=== PATIENT | female | born 1930 | race Caucasian/White ===

== ENCOUNTER 2016-08-05 14:04 | Inpatient (IN) | payer MEDICARE ==
[2016-08-05 14:30] LABS: Glucose,Whole Blood 162 mg/dL (75-99)
[2016-08-05] MEDS ORDERED: SODIUM CHLORIDE 0.9% 1,000 ML IV STA (14:45)
--- NOTE | 2016-08-05 14:50 | ED ---
Dizziness HPI - General Chief Complaint: Dizziness Stated Complaint: chest pain/dizzy/lightheaded/disoriented Time Seen by Provider: 08/05/16 14:30 Source: patient, family, RN notes reviewed Mode of arrival: wheelchair Limitations: no limitations - History of Present Illness Initial Comments: This is a 86-year-old female with history of atrial fibrillation who after lunch got up and felt a popping sound in her forehead and also swollen which also some dizziness some difficulty with ambulation and also some chest heaviness. The heaviness was 7/10 in severity she states that associated with any fevers chills nausea vomiting sweats no focal weakness. She felt as though she may fall backwards. She did not actually fall however. She denied any palpitations. She barely also felt somewhat warm during this episode. She denies any cough or phlegm production no dysuria MD Complaint: dizziness, lightheadedness, other - Related Data Home Medications Medication Instructions Recorded Confirmed Clopidogrel [Plavix] 75 mg PO DAILY 08/05/16 08/05/16 Eltroxin 100mg 100 mg PO DAILY 08/05/16 08/05/16 Lisinopril [Zestril] 10 mg PO DAILY 08/05/16 08/05/16 Metoprolol Succinate [Toprol XL] 25 mg PO BID 08/05/16 08/05/16 Pantoprazole Sodium [Protonix] 40 mg PO DAILY 08/05/16 08/05/16 Rivaroxaban [Xarelto] 20 mg PO DAILY 08/05/16 08/05/16 Rosuvastatin [Crestor] 10 mg PO DAILY 08/05/16 08/05/16 amLODIPine [Norvasc] 10 mg PO DAILY 08/05/16 08/05/16 sitaGLIPtin [Januvia] 50 mg PO DAILY 08/05/16 08/05/16 Allergies Allergy/AdvReac Type Severity Reaction Status Date / Time No Known Allergies Allergy Verified 08/05/16 15:07 Review of Systems ROS Statement: Those systems with pertinent positive or pertinent negative responses have been documented in the HPI. ROS Other: All systems not noted in ROS Statement are negative. Past Medical History Past Medical History: Atrial Fibrillation, Coronary Artery Disease (CAD), Diabetes Mellitus, Hyperlipidemia, Hypertension, Myocardial Infarction ([place]), Thyroid Disorder History of Any Multi-Drug Resistant Organisms: None Reported Past Surgical History: Cholecystectomy, Heart Catheterization With Stent, Hysterectomy Past Psychological History: No Psychological Hx Reported Smoking Status: Never smoker Past Alcohol Use History: None Reported Past Drug Use History: None Reported General Exam - General Exam Comments Initial Comments: This is a well-developed well-nourished awake alert oriented 3 female she does demonstrate some scanning speech which is normal for her per her daughter Limitations: no limitations General appearance: alert, in no apparent distress Head exam: Present: atraumatic, normocephalic, other (Physical. Be a slight amount swelling just above the right eyebrow extending over towards the mid forehead step-off or crepitation no ecchymosis.) Eye exam: Present: normal appearance, PERRL, EOMI. Absent: scleral icterus, conjunctival injection, periorbital swelling ENT exam: Present: normal exam, mucous membranes moist Neck exam: Present: normal inspection. Absent: tenderness, meningismus, lymphadenopathy Respiratory exam: Present: normal lung sounds bilaterally. Absent: respiratory distress, wheezes, rales, rhonchi, stridor Cardiovascular Exam: Present: other (Occasional extrasystoles noted). Absent: systolic murmur, diastolic murmur, rubs, gallop, clicks GI/Abdominal exam: Present: soft, normal bowel sounds. Absent: distended, tenderness, guarding, rebound, rigid Extremities exam: Present: normal inspection, full ROM, normal capillary refill. Absent: tenderness, pedal edema, joint swelling, calf tenderness Back exam: Present: normal inspection Neurological exam: Present: alert, oriented X3, CN II-XII intact Psychiatric exam: Present: normal affect, normal mood Skin exam: Present: warm, dry, intact, normal color. Absent: rash Course Vital Signs 08/05/16 08/05/16 14:16 15:32 Temperature 97.9 F Pulse Rate 60 62 Respiratory 22 16 Rate Blood Pressure 190/93 177/75 O2 Sat by Pulse 100 99 Oximetry EKG Findings - EKG Results: EKG: interpreted by ERMD (EKG does show evidence of a rate of 61 WV interval 220 QRS 136 QT/QTC of 46/49 first-degree AV block or bundle branch block with anterior fascicular block unifocal PVCs LVH) Medical Decision Making - Medical Decision Making I did discuss findings with the patient family patient will be admitted for evaluation for chest pain dizziness. She currently is asymptomatic - Lab Data Result diagrams: 08/05/16 14:47 08/05/16 14:47 Lab Results 08/05/16 08/05/16 08/05/16 Range/Units 14:26 14:47 14:47 WBC 9.7 (3.8-10.6) k/uL RBC 4.04 (3.80-5.40) m/uL Hgb 12.8 (11.4-16.0) gm/dL Hct 38.1 (34.0-46.0) % MCV 94.5 (80.0-100.0) fL MCH 31.7 (25.0-35.0) pg MCHC 33.5 (31.0-37.0) g/dL RDW 13.7 (11.5-15.5) % Plt Count 172 (150-450) k/uL Neutrophils % 83 % Lymphocytes % 9 % Monocytes % 5 % Eosinophils % 1 % Basophils % 0 % Neutrophils # 8.1 H (1.3-7.7) k/uL Lymphocytes # 0.9 L (1.0-4.8) k/uL Monocytes # 0.5 (0-1.0) k/uL Eosinophils # 0.1 (0-0.7) k/uL Basophils # 0.0 (0-0.2) k/uL Sodium (137-145) mmol/L Potassium (3.5-5.1) mmol/L Chloride (98-107) mmol/L Carbon Dioxide (22-30) mmol/L Anion Gap mmol/L BUN (7-17) mg/dL Creatinine (0.52-1.04) mg/dL Est GFR (MDRD) Af Amer (>60 ml/min/1.73 sqM) Est GFR (MDRD) Non-Af (>60 ml/min/1.73 sqM) Glucose (74-99) mg/dL POC Glucose (mg/dL) 162 H (75-99) mg/dL POC Glu Enrollment Counselor ELIDA Rand Jollyn Calcium (8.4-10.2) mg/dL Magnesium (1.6-2.3) mg/dL Total Bilirubin (0.2-1.3) mg/dL AST (14-36) U/L ALT (9-52) U/L Alkaline Phosphatase (38-126) U/L Total Creatine Kinase 94 (30-135) U/L CK-MB (CK-2) 1.1 (0.0-2.4) ng/mL CK-MB (CK-2) Rel Index 1.2 Troponin I <0.012 (0.000-0.034) ng/mL Total Protein (6.3-8.2) g/dL Albumin (3.5-5.0) g/dL 08/05/16 Range/Units 14:47 WBC (3.8-10.6) k/uL RBC (3.80-5.40) m/uL Hgb (11.4-16.0) gm/dL Hct (34.0-46.0) % MCV (80.0-100.0) fL MCH (25.0-35.0) pg MCHC (31.0-37.0) g/dL RDW (11.5-15.5) % Plt Count (150-450) k/uL Neutrophils % % Lymphocytes % % Monocytes % % Eosinophils % % Basophils % % Neutrophils # (1.3-7.7) k/uL Lymphocytes # (1.0-4.8) k/uL Monocytes # (0-1.0) k/uL Eosinophils # (0-0.7) k/uL Basophils # (0-0.2) k/uL Sodium 135 L (137-145) mmol/L Potassium 4.7 (3.5-5.1) mmol/L Chloride 101 (98-107) mmol/L Carbon Dioxide 21 L (22-30) mmol/L Anion Gap 13 mmol/L BUN 20 H (7-17) mg/dL Creatinine 0.78 (0.52-1.04) mg/dL Est GFR (MDRD) Af Amer >60 (>60 ml/min/1.73 sqM) Est GFR (MDRD) Non-Af >60 (>60 ml/min/1.73 sqM) Glucose 165 H (74-99) mg/dL POC Glucose (mg/dL) (75-99) mg/dL POC Glu Enrollment Counselor ID Calcium 9.2 (8.4-10.2) mg/dL Magnesium 2.3 (1.6-2.3) mg/dL Total Bilirubin 0.6 (0.2-1.3) mg/dL AST 31 (14-36) U/L ALT 31 (9-52) U/L Alkaline Phosphatase 72 (38-126) U/L Total Creatine Kinase (30-135) U/L CK-MB (CK-2) (0.0-2.4) ng/mL CK-MB (CK-2) Rel Index Troponin I (0.000-0.034) ng/mL Total Protein 7.7 (6.3-8.2) g/dL Albumin 4.5 (3.5-5.0) g/dL - Radiology Data Radiology results: report reviewed (I did imaging and report no acute findings.) , image reviewed Disposition Clinical Impression: Chest pain, Dizziness Disposition: ADMITTED IP TO THIS [facility] Condition: Stable Referrals: Nonstaff,Physician [Primary Care Provider] - 1-2 days
[2016-08-05 15:14] LABS: Basophils % (A) 0 %; CH 31.4; CHCM 33.4; Eosinophils # (A) 0.1 k/uL (0-0.7); Eosinophils % (A) 1 %; HCT 38.1 % (34.0-46.0); HDW 2.25; HGB 12.8 gm/dL (11.4-16.0); Luc # (Auto) 0.13; Luc % (Auto) 1; Lymphocytes # (A) 0.9 k/uL (1.0-4.8); Lymphocytes % (A) 9 %; MCH 31.7 pg (25.0-35.0); MCHC 33.5 g/dL (31.0-37.0); MCV 94.5 fL (80.0-100.0); Mean Platelet Volume 7.3; Monocytes # (A) 0.5 k/uL (0-1.0); Monocytes % (A) 5 %; Neutrophils # (A) 8.1 k/uL (1.3-7.7); Neutrophils % (A) 83 %; RBC 4.04 m/uL (3.80-5.40); RDW 13.7 % (11.5-15.5); WBC 9.7 k/uL (3.8-10.6)
--- NOTE | 2016-08-05 15:18 | CT ---
EXAMINATION TYPE: CT brain wo con DATE OF EXAM: 08/05/2016 COMPARISON: NONE HISTORY: Dizziness CT DLP: 1010.2 mGycm Automated exposure control for dose reduction was used. FINDINGS: There is no hemorrhage or hydrocephalus. Cerebral vascular calcifications are present. Cortical atrop hy is noted. Periventricular white matter shows patchy low attenuation, foci of low attenuation in th e bilateral thalami compatible with chronic infarcts. The calvarium is intact. Paranasal sinuses and mastoid air cells as visualized are normal. IMPRESSION: Chronic small vessel ischemia. No acute brain abnormality evident. Age-related atrophy.
[2016-08-05 15:20] LABS: Creatine Kinase 94 U/L (30-135)
[2016-08-05 15:22] LABS: ALT 31 U/L (9-52); AST 31 U/L (14-36); Alkaline Phosphatase 72 U/L (38-126); Anion Gap 13 mmol/L; Blood Urea Nitrogen 20 mg/dL (7-17); Calcium 9.2 mg/dL (8.4-10.2); Carbon Dioxide 21 mmol/L (22-30); Chloride 101 mmol/L (98-107); Glucose 165 mg/dL (74-99); Magnesium 2.3 mg/dL (1.6-2.3); Non-African American GFR(MDRD) >60 (>60 ml/min/1.73 sqM); Potassium 4.7 mmol/L (3.5-5.1); Sodium 135 mmol/L (137-145); Total Bilirubin 0.6 mg/dL (0.2-1.3); Total Protein 7.7 g/dL (6.3-8.2)
[2016-08-05 15:31] LABS: Creatine Kinase MB 1.1 ng/mL (0.0-2.4); Troponin I <0.012 ng/mL (0.000-0.034)
[2016-08-05] MEDS ORDERED: NITROGLYCERIN SL TABS 0.4 MG TAB SUBLINGUAL PRN (15:53)
--- NOTE | 2016-08-05 16:18 | XR ---
EXAMINATION TYPE: XR chest 2V DATE OF EXAM: 08/05/2016 COMPARISON: NONE HISTORY: Cough, Shortness of breath TECHNIQUE: Frontal and lateral views of the chest are obtained. FINDINGS: There is a sizable hiatal hernia present. No pneumothorax or pleural effusion. There are overlying cardiac leads. Heart size may be accentuated by rotation. No evident pneumonia. C oronary artery calcifications are present. IMPRESSION: Large hiatal hernia, possible cardiomegaly. Coronary artery disease.
[2016-08-05] MEDS: INSULIN LISPRO (humaLOG) 300 UNIT/3 ML VIAL SQ SCH ×2 (17:22→21:25)
[2016-08-05] MEDS: SODIUM CHLORIDE 0.9% 1,000 ML IV SCH ×2 (17:22→21:26)
[2016-08-05] MEDS ORDERED: RIVAROXABAN 10 MG TAB PO SCH (20:34)
[2016-08-05 20:56] LABS: Glucose,Whole Blood 125 mg/dL (75-99)
[2016-08-05] MEDS ORDERED: amLODIPine 10 MG TAB PO SCH (21:00)
[2016-08-05] MEDS: METOPROLOL SUCCINATE (ER) 25 MG TAB.ER.24H PO SCH (21:26)
[2016-08-05] MEDS: LORazepam 0.5 MG TAB PO PRN (21:31)
[2016-08-05 22:12] LABS: Creatine Kinase MB 1.2 ng/mL (0.0-2.4); Troponin I <0.012 ng/mL (0.000-0.034)
[2016-08-05] MEDS ORDERED: LISINOPRIL 10 MG TAB PO STA (22:14)
[2016-08-05] MEDS ORDERED: FUROSEMIDE 10 MG/ML 2 ML VIAL IV ONE (22:15)
[2016-08-05] MEDS ORDERED: ENALAPRILAT 1.25 MG/ML 1 ML VIAL IVP PRN (22:16)
[2016-08-05 22:36] LABS: Creatine Kinase 108 U/L (30-135)
[2016-08-06] MEDS: ACETAMINOPHEN TAB 325 MG TAB PO PRN (00:33)
[2016-08-06 03:12] LABS: Cholesterol 104 mg/dL (<200); HDL Cholesterol 35 mg/dL (40-60); Triglycerides 90 mg/dL (<150)
[2016-08-06 03:20] LABS: Creatine Kinase MB 1.4 ng/mL (0.0-2.4)
[2016-08-06 03:25] LABS: Troponin I 0.013 ng/mL (0.000-0.034)
[2016-08-06] MEDS: LEVOTHYROXINE 100 MCG TAB PO SCH (06:31)
[2016-08-06 07:03] LABS: Glucose,Whole Blood 126 mg/dL (75-99)
[2016-08-06] MEDS: INSULIN LISPRO (humaLOG) 300 UNIT/3 ML VIAL SQ SCH ×4 (07:55→21:24)
--- NOTE | 2016-08-06 08:32 | HP ---
DATE OF ADMISSION: CHIEF COMPLAINT: This is an 86-year-old female with atrial fibrillation. She felt some puffiness on her forehead and some dizziness, ambulating and chest heaviness, 7/10 in severity. No fever, chills, nausea, vomiting, or weakness. She felt like she was going to fall and pass out. No cough at this time. No dysuria, frequency, urgency. Home medications include: 1. Plavix. 2. Ecotrin. 3. Zestril. 4. Toprol-XL. 5. Protonix. 6. Xarelto. 7. Crestor. 8. Norvasc. 9. Januvia. ALLERGIES: No known drug allergies. REVIEW OF SYSTEMS: A 14-point review of systems negative except for as mentioned in HPI. PAST MEDICAL HISTORY: Atrial fibrillation, coronary artery disease, diabetes mellitus, hyperlipidemia, hypertension, myocardial infarction, hypothyroidism. PAST SURGICAL HISTORY: Cholecystectomy, heart catheterization with stent, hysterectomy. SOCIAL HISTORY: Never smoked, no alcohol. No illicit drugs. PHYSICAL EXAM: Well developed, well-nourished female, alert and oriented x3. PSYCH: Fair mood and affect. CARDIOVASCULAR: S1, S2. LUNGS: Transmitted upper airway sounds. GI: Soft, nontender. HEMATOLOGIC: Negative Homans. VASCULAR: Normal dorsalis pedis, posterior tibial and radial pulse. SKIN: Warm, dry, intact. Temp 97, pulse is 66, respiratory rate 16 to 22, blood pressure is 190/75, O2 sat is 99% to 100%. EKG shows first degree AV block. Sodium is 135, potassium 4.7, BUN 20, creatinine 0.78, glucose 162. Troponins are negative. Albumin 4.3. Liver enzymes normal. ASSESSMENT: 1. Atypical chest pain, dizziness. Ruled out myocardial infarction. Cardiology was consulted. 2. History of gastroesophageal reflux disease. 3. Hypertension. 4. Dyslipidemia. 5. History of coronary artery disease. 6. Hypothyroidism. 7. Diabetes mellitus. 8. Atrial fibrillation. 9. Dyslipidemia. Continue current medicines for the next 24 to 48 hours. Will be cleared by Cardiology prior to going home.
[2016-08-06] MEDS ORDERED: amLODIPine 10 MG TAB PO SCH (09:00)
[2016-08-06] MEDS ORDERED: RIVAROXABAN 10 MG TAB PO SCH (09:00)
[2016-08-06] MEDS ORDERED: ASPIRIN 325 MG TAB PO SCH (09:00)
[2016-08-06] MEDS ORDERED: ATORVASTATIN 20 MG TAB PO SCH (09:00)
--- NOTE | 2016-08-06 10:09 | US ---
EXAMINATION TYPE: US carotid duplex BILAT DATE OF EXAM: 08/06/2016 COMPARISON: NONE CLINICAL HISTORY: diziness. dizzy, HTN but controlled EXAM MEASUREMENTS: RIGHT: Peak Systolic Velocity (PSV) cm/sec ----- Right CCA: 47.9 ----- Right ICA: 108.1 ----- Right ECA: 90.5 ICA/CCA ratio: 2.3 RIGHT: End Diastole cm/sec ----- Right CCA: 8.6 ----- Right ICA: 20.8 ----- Right ECA: 0.0 LEFT: Peak Systolic Velocity (PSV) cm/sec ----- Left CCA: 47.0 ----- Left ICA: 116.1 ----- Left ECA: 109.7 ICA/CCA ratio: 2.5 LEFT: End Diastole cm/sec ----- Left CCA: 6.9 ----- Left ICA: 20.8 ----- Left ECA: 0.0 VERTEBRALS (direction of flow): Right Vertebral: Antegrade Left Vertebral: Antegrade Bilateral wall thickening. No elevated velocities. Significant stenosis seen in both right and left CCA. Plaque seen in mid/prox right CCA, left CCA, and bilateral bulbs extending into prox ICA. IMPRESSION: 1. Estimated ICA stenosis bilaterally of 50-69%. Criteria for Assigning % of Stenosis / Diameter reduction (Estimation based on the indirect measurements of the internal carotid artery velocities (ICA PSV). 1. Normal (no stenosis)=ICA PSV < 125 cm/s: ratio < 2.0: ICA EDV<40 cm/s. 2. Less than 50% stenosis=ICA PSV < 125 cm/s: ratio < 2.0: ICA EDV<40 cm/s. 3. 50 to 69% stenosis=ICA PSV of 125 to 230 cm/s: ration 2.0 ? 4.0: ICA EDV 40-100 cm/s. 4. Greater than 70% stenosis to near occlusion= ICA PSV > 230 cm/s: ratio > 4.0: ICA EDV > 100 cm/s. 5. Near occlusion= ICA PSV velocities may be low or undetectable: variable ratio and ICA EDV. 6. Total occlusion=unable to detect flow.
--- NOTE | 2016-08-06 10:42 | P.CRDCN ---
History of Present Illness Consult date: 08/06/16 Requesting physician: Robbie Paulson Reason for Consult (text): Near syncope Chief complaint: Near syncope History of present illness: This is a pleasant 86-year-old female with history of hypertension, hyperlipidemia, hypothyroidism, coronary artery disease with prior stent placement, according to the patient she had a myocardial infarction one year ago at which time a stent was placed, this was done in [place] [facility], she also has history of paroxysmal atrial fibrillation for which she is on xarelto. Patient was over and [place] yesterday with her daughter, shopping for address she states that she was in the change her which was extremely warm. She didn't feel well in general, states she was mildly lightheaded. They went across the street to [facility] to have something to eat and drink. She states that she continued to not feel well intermittently, she stood up and then became extremely lightheaded, she was falling to the floor but her daughter caught her before she had the opportunity to pass out completely. When she went out to her car with the daughter, she again had another episode where she did not feel well and almost passed out again. Patient states that she had similar symptoms in the emergency room. Again this morning while I was examining her she states that she felt she went out for a couple brief seconds, at that time it was noted on the monitor that she had a significant pause. EKG on arrival here shows normal sinus rhythm with first-degree AV block, occasional PVC, right bundle branch block pattern and left anterior fascicular block. Subsequent EKG performed this morning shows atrial fibrillation with right bundle branch block pattern and occasional PVCs. Patient was noted on the monitor to have a positive around 3 AM this morning, this morning she has had 2 separate pauses of approximately 3 seconds. Patient is on Xarelto for her paroxysmal atrial fibrillation, she also takes of metoprolol tartrate 25 mg one tablet by mouth twice a day. Chest x-ray reveals large hiatal hernia, possible cardiomegaly. CT of the brain reveals chronic small vessel ischemia. No acute brain abnormality noted. Carotid Doppler study reveals ICA stenosis bilaterally of 50-69%. Blood pressure on arrival 190/90 with a heart rate in the 60s, 100% on room air. CBC normal, potassium 4.7, d-dimer 0.4, BUN 20, creatinine 0.7. Troponins 0.012, 0.012, 0.013. BNP level 890. Past Medical History Past Medical History: Atrial Fibrillation, Coronary Artery Disease (CAD), Diabetes Mellitus, Hyperlipidemia, Hypertension, Myocardial Infarction ([place]), Thyroid Disorder Last Myocardial Infarction Date:: 2015 History of Any Multi-Drug Resistant Organisms: None Reported Past Surgical History: Cholecystectomy, Heart Catheterization With Stent, Hysterectomy Additional Past Surgical History / Comment(s): cataract surgery bilat Past Anesthesia/Blood Transfusion Reactions: No Reported Reaction Date of Last Stent Placement:: 2015 Past Psychological History: No Psychological Hx Reported Smoking Status: Never smoker - Past Family History Father Additional Family Medical History / Comment(s): in train accident Mother Additional Family Medical History / Comment(s): from car accident Daughter(s) Family Medical History: No Reported History Son(s) Family Medical History: Cancer Additional Family Medical History / Comment(s): hep c, cancer Medications and Allergies Home Medications Medication Instructions Recorded Confirmed Type Clopidogrel [Plavix] 75 mg PO DAILY 08/05/16 08/05/16 History Eltroxin 100mcg 100 mcg PO DAILY 08/05/16 08/05/16 History Lisinopril [Zestril] 10 mg PO DAILY 08/05/16 08/05/16 History Metoprolol Succinate [Toprol XL] 25 mg PO BID 08/05/16 08/05/16 History Pantoprazole Sodium [Protonix] 40 mg PO DAILY 08/05/16 08/05/16 History Rivaroxaban [Xarelto] 20 mg PO DAILY 08/05/16 08/05/16 History Rosuvastatin [Crestor] 10 mg PO DAILY 08/05/16 08/05/16 History amLODIPine [Norvasc] 10 mg PO DAILY 08/05/16 08/05/16 History sitaGLIPtin [Januvia] 50 mg PO DAILY 08/05/16 08/05/16 History Allergies Allergy/AdvReac Type Severity Reaction Status Date / Time No Known Allergies Allergy Verified 08/05/16 20:13 Physical Exam Vitals: Vital Signs Temp Pulse Pulse Pulse Resp BP BP 08/06/16 08:00 97.9 F 84 62 18 08/06/16 04:00 97.9 F 58 L 18 150/55 08/06/16 03:57 18 08/06/16 00:00 97.9 F 61 18 167/80 08/05/16 23:19 18 08/05/16 20:00 98.1 F 80 18 193/86 08/05/16 18:04 97.9 F 84 18 178/84 08/05/16 16:38 96.3 F L 64 18 186/81 08/05/16 15:32 62 16 177/75 08/05/16 14:16 97.9 F 60 22 190/93 BP Pulse Ox 08/06/16 08:00 128/54 96 08/06/16 04:00 98 08/06/16 03:57 08/06/16 00:00 97 08/05/16 23:19 08/05/16 20:00 98 08/05/16 18:04 94 L 08/05/16 16:38 99 08/05/16 15:32 99 08/05/16 14:16 100 Intake and Output 08/05/16 08/06/16 08/06/16 22:59 06:59 14:59 Intake Total 250 680 Balance 250 680 Intake: IV 480 Sodium Chloride 0.9% 1, 480 000 ml @ 80 mls/hr IV . [id number] [facility] Rx#:[id number] Amount of Fluid Infused ( 150 ml) Oral 100 200 Other: Voiding Method Toilet Bedside Commode Toilet Bedside Commode # Voids 2 2 PHYSICAL EXAMINATION: HEENT: Head is atraumatic, normocephalic. Pupils equal, round. Neck is supple. There is no elevated jugular venous pressure. HEART EXAMINATION: Heart S1 and S2 irregularly irregular a systolic ejection murmur is heard. CHEST EXAMINATION: Lungs are clear to auscultation and precussion. No chest wall tenderness is noted on palpation or with deep breathing. ABDOMEN: Soft, nontender. Bowel sounds are heard. No organomegaly noted. EXTREMITIES: 2+ peripheral pulses with no evidence of peripheral edema and no calf tenderness noted. NEUROLOGIC patient is awake, alert and oriented -3. . Results 08/05/16 14:47 08/05/16 14:47 Cardiac Enzymes 08/05/16 08/05/16 08/05/16 Range/Units 14:47 14:47 20:37 AST 31 (14-36) U/L CK-MB (CK-2) 1.1 1.2 (0.0-2.4) ng/mL Troponin I <0.012 <0.012 (0.000-0.034) ng/mL 08/06/16 Range/Units 02:25 AST (14-36) U/L CK-MB (CK-2) 1.4 (0.0-2.4) ng/mL Troponin I 0.013 (0.000-0.034) ng/mL Lipids 08/06/16 Range/Units 02:25 Triglycerides 90 (<150) mg/dL Cholesterol 104 (<200) mg/dL HDL Cholesterol 35 L (40-60) mg/dL CBC 08/05/16 Range/Units 14:47 WBC 9.7 (3.8-10.6) k/uL RBC 4.04 (3.80-5.40) m/uL Hgb 12.8 (11.4-16.0) gm/dL Hct 38.1 (34.0-46.0) % Plt Count 172 (150-450) k/uL Comprehensive Metabolic Panel 08/05/16 Range/Units 14:47 Sodium 135 L (137-145) mmol/L Potassium 4.7 (3.5-5.1) mmol/L Chloride 101 (98-107) mmol/L Carbon Dioxide 21 L (22-30) mmol/L BUN 20 H (7-17) mg/dL Creatinine 0.78 (0.52-1.04) mg/dL Glucose 165 H (74-99) mg/dL Calcium 9.2 (8.4-10.2) mg/dL AST 31 (14-36) U/L ALT 31 (9-52) U/L Alkaline Phosphatase 72 (38-126) U/L Total Protein 7.7 (6.3-8.2) g/dL Albumin 4.5 (3.5-5.0) g/dL Current Medications Generic Name Dose Route Start Last Admin Trade Name Freq PRN Reason Stop Dose Admin Acetaminophen 650 mg 08/06/16 00:23 08/06/16 00:33 Tylenol Tab PO 650 mg Q4HR PRN Administration Fever and/ or Pain Amlodipine Besylate 10 mg 08/06/16 09:00 Norvasc PO DAILY [facility] Aspirin 325 mg 08/06/16 09:00 Aspirin PO DAILY [facility] Atorvastatin Calcium 20 mg 08/06/16 09:00 Lipitor PO DAILY [facility] Clopidogrel Bisulfate 75 mg 08/06/16 09:00 Plavix PO DAILY [facility] Enalaprilat 1.25 mg 08/05/16 22:16 Vasotec IVP Q6HR PRN Blood Pressure - High Sodium Chloride 1,000 mls @ 80 mls/hr 08/05/16 16:00 08/05/16 21:26 Saline 0.9% IV 80 mls/hr .[id number] EMILIANO Administration Insulin Human Lispro 0 unit 08/05/16 17:30 08/06/16 07:55 Humalog SQ Not Given ACHS [facility] Protocol Levothyroxine Sodium 100 mcg 08/06/16 06:30 08/06/16 06:31 Synthroid PO 100 mcg 0630 [facility] Administration Linagliptin 5 mg 08/06/16 09:00 Tradjenta PO DAILY [facility] Lisinopril 10 mg 08/06/16 09:00 Zestril PO DAILY [facility] Lorazepam 0.5 mg 08/05/16 21:00 08/05/16 21:31 Ativan PO 0.5 mg HS PRN Administration Insomnia Metoprolol Succinate 25 mg 08/05/16 21:00 08/05/16 21:26 Toprol Xl PO 25 mg BID [facility] Administration Nitroglycerin 0.4 mg 08/05/16 15:53 Nitrostat SUBLINGUAL Q5M PRN Chest Pain Pantoprazole Sodium 40 mg 08/06/16 09:00 Protonix PO DAILY [facility] Rivaroxaban 20 mg 08/05/16 20:34 08/05/16 21:26 Xarelto PO 20 mg W/SUPPER [facility] Administration Intake and Output 08/05/16 08/06/16 08/06/16 22:59 06:59 14:59 Intake Total 250 680 Balance 250 680 Intake: IV 480 Sodium Chloride 0.9% 1, 480 000 ml @ 80 mls/hr IV . [id number] [facility] Rx#:[id number] Amount of Fluid Infused ( 150 ml) Oral 100 200 Other: Voiding Method Toilet Bedside Commode Toilet Bedside Commode # Voids 2 2 08/05/16 14:47 08/05/16 14:47 EKG Interpretations (text) EKG shows normal sinus rhythm with first-degree AV block, right bundle branch block pattern, trifascicular block. Occasional PVC. 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 #2 known history of coronary artery disease with prior myocardial infarction and stent placement approximately one year ago in [facility] #3 hypertension, accelerated. #4 history of hypertension Number 5 hyperlipidemia #6 paroxysmal atrial fibrillation on xarelto 20 mg daily #7 diabetes #8 hypothyroidism Plan We will hold the patient's xarelto and Toprol. Check free T4 and TSH. Obtain echocardiogram with Doppler study. Patient may require implantation of a permanent pacemaker, the risks and the benefits were explained to the patient in detail. His continue aspirin. Further recommendations to follow. DNP note has been reviewed, I agree with a documented findings and plan of care. Patient was seen and examined.
[2016-08-06] MEDS ORDERED: ceFAZolin 2 GM in SODIUM CHLORIDE 0.9% 100 ML IVPB ONE (11:10)
[2016-08-06] MEDS ORDERED: ceFAZolin 1,000 MG in SODIUM CHLORIDE 0.9% IRRIGATIO 250 ML IRRIGATION ONE (11:10)
[2016-08-06] MEDS ORDERED: ATORVASTATIN 80 MG TAB PO SCH (11:15)
[2016-08-06] MEDS: amLODIPine 10 MG TAB PO SCH (11:29)
[2016-08-06] MEDS: CLOPIDOGREL 75 MG TAB PO SCH (11:29)
[2016-08-06] MEDS: LINAGLIPTIN 5 MG TABLET PO SCH (11:29)
[2016-08-06] MEDS: PANTOPRAZOLE 40 MG TABLET PO SCH (11:29)
[2016-08-06] MEDS: ATORVASTATIN 20 MG TAB PO SCH (11:29)
[2016-08-06] MEDS: LISINOPRIL 10 MG TAB PO SCH (11:30)
[2016-08-06] MEDS: SODIUM CHLORIDE 0.9% 1,000 ML IV SCH ×3 (11:32→21:24)
[2016-08-06 11:35] LABS: Hemoglobin A1C 6.2 % (4.2-6.1)
[2016-08-06 12:17] LABS: Glucose,Whole Blood 149 mg/dL (75-99)
[2016-08-06] MEDS: METOPROLOL SUCCINATE (ER) 25 MG TAB.ER.24H PO SCH (12:28)
--- NOTE | 2016-08-06 14:27 | P.PN ---
Subjective 86-year-old female seen and evaluated. Did note cardiology's recommendations. Patients being worked up for dizziness lightheadedness symptomatic. Patient's EKG on admission showed sinus with a first-degree AV block. Patient was noted to have episodes of sinus pauses on the monitor after being admitted. It's noted the patient is on Xarelto for paroxysmal atrial fibrillation. Also noted the patient is on a beta da metoprolol 25 mg twice a day. Patient did have a CAT scan of the brain on admission it did show small chronic vessel ischemia no acute findings. Carotid Doppler studies showed no significant stenosis. It was noted that the blood pressure was elevated 190/90 heart rate in the 60s. Objective - Vital Signs Vital signs: Vital Signs Temp 97.9 F 08/06/16 12:00 Pulse 84 08/06/16 12:00 Resp 18 08/06/16 12:00 BP 155/97 08/06/16 12:00 Pulse Ox 97 08/06/16 12:00 Intake & Output 08/05/16 08/06/16 08/06/16 18:59 06:59 18:59 Intake Total 150 780 Balance 150 780 Weight 78.471 kg Intake: IV 480 Sodium Chloride 0.9% 1, 480 000 ml @ 80 mls/hr IV . [id number] [facility] Rx#:[id number] Amount of Fluid Infused ( 150 ml) Oral 300 Other: Voiding Method Bedside Commode Toilet Bedside Commode # Voids 2 3 - Exam Physical exam 86-year-old female pleasant cooperative oriented 3 currently denying dizziness or lightheadedness Lungs diminished at the bases otherwise adequate air movement Heart S1-S2 audible irregular denying chest pain when questioning Abdomen soft nontender distended positive bowel tones Extremities no edema noted - Labs CBC & Chem 7: 08/05/16 14:47 08/05/16 14:47 Labs: Abnormal Lab Results - Last 24 Hours (Table) 08/05/16 08/05/16 08/05/16 Range/Units 14:26 14:47 14:47 Neutrophils # 8.1 H (1.3-7.7) k/uL Lymphocytes # 0.9 L (1.0-4.8) k/uL Sodium 135 L (137-145) mmol/L Carbon Dioxide 21 L (22-30) mmol/L BUN 20 H (7-17) mg/dL Glucose 165 H (74-99) mg/dL POC Glucose (mg/dL) 162 H (75-99) mg/dL Hemoglobin A1c (4.2-6.1) % HDL Cholesterol (40-60) mg/dL TSH (0.465-4.680) mIU/L 08/05/16 08/05/16 08/06/16 Range/Units 14:47 20:54 02:25 Neutrophils # (1.3-7.7) k/uL Lymphocytes # (1.0-4.8) k/uL Sodium (137-145) mmol/L Carbon Dioxide (22-30) mmol/L BUN (7-17) mg/dL Glucose (74-99) mg/dL POC Glucose (mg/dL) 125 H (75-99) mg/dL Hemoglobin A1c 6.2 H (4.2-6.1) % HDL Cholesterol 35 L (40-60) mg/dL TSH (0.465-4.680) mIU/L 08/06/16 08/06/16 08/06/16 Range/Units 02:25 07:01 12:15 Neutrophils # (1.3-7.7) k/uL Lymphocytes # (1.0-4.8) k/uL Sodium (137-145) mmol/L Carbon Dioxide (22-30) mmol/L BUN (7-17) mg/dL Glucose (74-99) mg/dL POC Glucose (mg/dL) 126 H 149 H (75-99) mg/dL Hemoglobin A1c (4.2-6.1) % HDL Cholesterol (40-60) mg/dL TSH 0.079 L (0.465-4.680) mIU/L Assessment and Plan Plan: Impression Present on admission dizziness lightheadedness presyncopal episode suspect due to multiple episodes of pauses greater than 3 seconds Paroxysmal atrial fibrillation on Xarelto Present on admission hypertension urgency Known coronary artery disease with prior coronary stenting 2016 in [facility] Hypothyroid Hyperlipidemia Type 2 diabetes non-insulin hemoglobin A1c 6.2 Plan Continue the patient's by cardiology service beta da being held Monitor blood pressure and heart rate address as indicated Fall precautions Follow-up on pending labs Follow-up on pending echocardiogram Further recommendations pending The above impression and plan of care have been discussed and directed by signing physician. Giovana Franklin nurse practitioner acting as scribe for signing physician.
[2016-08-06 16:56] LABS: Glucose,Whole Blood 114 mg/dL (75-99)
[2016-08-06 21:34] LABS: Glucose,Whole Blood 110 mg/dL (75-99)
[2016-08-06 21:41] LABS: Appearance,Urine Clear (Clear); Bacteria,Urine Rare /hpf; Bilirubin,Urine Negative (Negative); Glucose,Urine (UA) Negative (Negative); Ketones,Urine Trace (Negative); Leukocyte Esterase,Urine Negative (Negative); Mucus,Urine Rare /hpf; Nitrite,Urine Negative (Negative); PH, Urine 6.5 (5.0-8.0); Particle Count 17278; Protein,Urine Trace (Negative); RBC,Urine 4 /hpf (0-5); Specific Gravity,Urine 1.009 (1.001-1.035); Squamous Epithelial Cell,Urine <1 /hpf (0-4); UA Billing (MACRO vs. MICRO) MICRO; Urobilinogen,Urine <2.0 mg/dL (<2.0); WBC,Urine 1 /hpf (0-5)
[2016-08-06] MEDS: LORazepam 0.5 MG TAB PO PRN (22:11)
[2016-08-07] MEDS: INSULIN LISPRO (humaLOG) 300 UNIT/3 ML VIAL SQ SCH ×4 (07:18→21:28)
[2016-08-07] MEDS: CLOPIDOGREL 75 MG TAB PO SCH (07:19)
[2016-08-07] MEDS: amLODIPine 10 MG TAB PO SCH (07:20)
[2016-08-07] MEDS: PANTOPRAZOLE 40 MG TABLET PO SCH (07:20)
[2016-08-07] MEDS: LEVOTHYROXINE 100 MCG TAB PO SCH (07:20)
[2016-08-07] MEDS: LISINOPRIL 10 MG TAB PO SCH (07:20)
[2016-08-07] MEDS: LINAGLIPTIN 5 MG TABLET PO SCH (07:20)
[2016-08-07] MEDS: ATORVASTATIN 20 MG TAB PO SCH (07:20)
--- NOTE | 2016-08-07 10:07 | ECHOF ---
Referral Reason:assess lvf MEASUREMENTS -------- HEIGHT: 182.9 cm WEIGHT: 89.8 kg BP: 120/40 IVSd: 1.1 cm (0.6 - 1.1) LVIDd: 3.5 cm (3.9 - 5.3) LVPWd: 1.2 cm (0.6 - 1.1) IVSs: 1.4 cm LVIDs: 2.6 cm LVPWs: 1.5 cm LA Diam: 3.7 cm (2.7 - 3.8) LAESV Index (A-L): 51.45 ml/m Ao Diam: 2.8 cm (2.0 - 3.7) AV Cusp: 1.2 cm (1.5 - 2.6) LA Diam: 4.2 cm (2.7 - 3.8) MV EXCURSION: 13.189 mm (> 18.000) MV EF SLOPE: 59 mm/s (70 - 150) EPSS: 0.2 cm RAP: 5.00 mmHg RVSP: 40.11 mmHg FINDINGS -------- Undetermined rhythm. This was a technically adequate study. There is mild concentric left ventricular hypertrophy. Overall left ventricular systolic function is normal with, an EF between 60 - 65 %. The right ventricle is normal in size. LA is severely dilated >40 ml/m2 The right atrial size is normal. There is mild aortic valve sclerosis. Trace to mild aortic regurgitation. Mild mitral annular calcification present. Mild mitral regurgitation is present. Mild tricuspid regurgitation present. There is no evidence of pulmonary hypertension. The right ventricular systolic pressure, as measured by Doppler, is 40.11mmHg. There is no pulmonic regurgitation present. The aortic root size is normal. There is no pericardial effusion. CONCLUSIONS -------- 1. There is mild concentric left ventricular hypertrophy. 2. The right ventricular systolic pressure, as measured by Doppler, is 40.11mmHg. 3. There is no pulmonic regurgitation present. 4. The aortic root size is normal. 5. There is no pericardial effusion. 6. Overall left ventricular systolic function is normal with, an EF between 60 - 65 %. 7. LA is severely dilated >40 ml/m2 8. There is mild aortic valve sclerosis. 9. Trace to mild aortic regurgitation. 10. Mild mitral annular calcification present. 11. Mild mitral regurgitation is present. 12. Mild tricuspid regurgitation present. 13. There is no evidence of pulmonary hypertension. BOARD CATCHER: Beth Bee RDCS
--- NOTE | 2016-08-07 11:11 | P.PN ---
Subjective 86-year-old female sitting up in bed being seen and examined this morning. Currently denying dizziness lightheadedness shortness of breath. Patient maintain sinus rhythm there's been no further pauses noted. Patients being followed by cardiology service. Patient is scheduled tentatively tomorrow for permanent pacemaker per recommendations of cardiology service. Patients being worked up for dizziness lightheadedness symptomatic monitor had shown first- degree AV block with sinus pauses. Patient additionally has a history of paroxysmal atrial fibrillation on Xarelto. Xarelto currently is on hold in anticipation of the permanent pacemaker scheduled tentatively for August 08 blood pressure this morning is 164/70 4 in the morning 117/56 Objective - Vital Signs Vital signs: Vital Signs Temp 96.8 F L 08/07/16 07:32 Pulse 63 08/07/16 07:32 Resp 16 08/07/16 07:32 BP 164/70 08/07/16 07:32 Pulse Ox 100 08/07/16 07:32 Intake & Output 08/06/16 08/07/16 08/07/16 18:59 06:59 18:59 Intake Total 1460 960 240 Output Total 600 200 Balance 860 760 240 Weight 71 kg Intake: IV 960 960 Sodium Chloride 0.9% 1, 960 960 000 ml @ 80 mls/hr IV . [id number] [facility] Rx#:[id number] Oral 500 240 Output: Urine 600 200 Other: Voiding Method Toilet Toilet Toilet Bedside Commode Bedside Commode Bedside Commode # Voids 3 1 - Exam Physical exam 86-year-old female pleasant cooperative oriented 3 currently denying dizziness or lightheadedness sitting up in bed taking a diet Lungs diminished at the bases otherwise adequate air movement sats are 100% on room air Heart S1-S2 audible irregular denying chest pain when questioning monitor sinus with PVCs no further pauses noted Abdomen soft nontender distended positive bowel tones Extremities no edema noted - Labs CBC & Chem 7: 08/05/16 14:47 08/05/16 14:47 Labs: Abnormal Lab Results - Last 24 Hours (Table) 08/05/16 08/06/16 08/06/16 Range/Units 14:47 02:25 12:15 POC Glucose (mg/dL) 149 H (75-99) mg/dL Hemoglobin A1c 6.2 H (4.2-6.1) % TSH 0.079 L (0.465-4.680) mIU/L Urine Protein (Negative) Urine Ketones (Negative) Urine Blood (Negative) Urine Bacteria (None) /hpf Urine Mucus (None) /hpf 08/06/16 08/06/16 08/06/16 Range/Units 16:29 20:46 21:33 POC Glucose (mg/dL) 114 H 110 H (75-99) mg/dL Hemoglobin A1c (4.2-6.1) % TSH (0.465-4.680) mIU/L Urine Protein Trace H (Negative) Urine Ketones Trace H (Negative) Urine Blood Small H (Negative) Urine Bacteria Rare H (None) /hpf Urine Mucus Rare H (None) /hpf Assessment and Plan Plan: Impression Present on admission dizziness lightheadedness presyncopal episode suspect due to multiple episodes of pauses greater than 3 seconds Paroxysmal atrial fibrillation on Xarelto Present on admission hypertension urgency Known coronary artery disease with prior coronary stenting 2016 in [facility] Hypothyroid Hyperlipidemia Type 2 diabetes non-insulin hemoglobin A1c 6.2 Echocardiogram August 06 left ventricular systolic function normal with an EF between 60 and 65% Plan Continue cardiology service recommendations beta da being held Tentatively scheduled for permanent pacemaker by cardiology on August 08 defer to the timing by cardiology Monitor blood pressure and heart rate address as indicated Fall precautions Further recommendations pending The above impression and plan of care have been discussed and directed by signing physician. Giovana Franklin nurse practitioner acting as scribe for signing physician.
[2016-08-07] MEDS: SODIUM CHLORIDE 0.9% 1,000 ML IV SCH (11:48)
[2016-08-07 12:46] LABS: Glucose,Whole Blood 115 mg/dL (75-99)
--- NOTE | 2016-08-07 15:30 | P.PN ---
Subjective Principal diagnosis: Dizziness This pleasant 86-year-old female with history of hypertension, hyperlipidemia, coronary artery disease, hypothyroidism and paroxysmal atrial fibrillation who presented to the hospital with symptoms of dizziness and near syncope. 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 She was also noted on her telemetry strips to have significant pauses of greater than 3 seconds. Xarelto was placed on hold, as well as her beta da. She has had no further episodes of syncope or dizziness here. No further pauses noted through the night last night. Patient will be scheduled to undergo implantation of a permanent pacemaker tomorrow by Dr. Velasquez. Objective - Vital Signs Vital signs: Vital Signs Temp 97.0 F L 08/07/16 12:00 Pulse 71 08/07/16 12:00 Resp 18 08/07/16 12:00 BP 190/70 08/07/16 12:00 Pulse Ox 99 08/07/16 12:00 Intake & Output 08/06/16 08/07/16 08/07/16 18:59 06:59 18:59 Intake Total 1460 960 660 Output Total 600 200 750 Balance 860 760 -90 Weight 71 kg Intake: IV 960 960 Sodium Chloride 0.9% 1, 960 960 000 ml @ 80 mls/hr IV . [id number] [facility] Rx#:[id number] Intake, IV Titration 240 Amount Sodium Chloride 0.9% 1, 240 000 ml @ 20 mls/hr IV . Q24H [facility] Rx#:[id number] Oral 500 420 Output: Urine 600 200 750 Straight 600 Other: Voiding Method Toilet Toilet Toilet Bedside Commode Bedside Commode Bedside Commode # Voids 3 1 0 # Bowel Movements 1 - Exam PHYSICAL EXAMINATION: HEENT: Head is atraumatic, normocephalic. Pupils equal, round. Neck is supple. There is no elevated jugular venous pressure. HEART EXAMINATION: S1 and S2 a systolic ejection murmur is heard. CHEST EXAMINATION: Lungs are clear to auscultation and precussion. No chest wall tenderness is noted on palpation or with deep breathing. ABDOMEN: Soft, nontender. Bowel sounds are heard. No organomegaly noted. EXTREMITIES: 1+ peripheral pulses with trace evidence of peripheral edema and no calf tenderness noted]. NEUROLOGIC [patient is awake, alert and oriented -3.] . - Labs CBC & Chem 7: 08/05/16 14:47 08/05/16 14:47 Labs: Abnormal Lab Results - Last 24 Hours (Table) 08/06/16 08/06/16 08/06/16 Range/Units 16:29 20:46 21:33 POC Glucose (mg/dL) 114 H 110 H (75-99) mg/dL Urine Protein Trace H (Negative) Urine Ketones Trace H (Negative) Urine Blood Small H (Negative) Urine Bacteria Rare H (None) /hpf Urine Mucus Rare H (None) /hpf 08/07/16 Range/Units 12:44 POC Glucose (mg/dL) 115 H (75-99) mg/dL Urine Protein (Negative) Urine Ketones (Negative) Urine Blood (Negative) Urine Bacteria (None) /hpf Urine Mucus (None) /hpf Assessment and Plan Plan: Assessment and plan #1 near syncope with 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 #2 known history of coronary artery disease with prior myocardial infarction and stent placement approximately one year ago in [facility] #3 hypertension, accelerated. #4 history of hypertension Number 5 hyperlipidemia #6 paroxysmal atrial fibrillation on xarelto 20 mg daily #7 diabetes #8 hypothyroidism Plan Echocardiogram with Doppler study was performed which revealed an ejection fraction of 60-65%. Patient will be scheduled to undergo implantation of a permanent pacemaker tomorrow by Dr. Velasquez. The risks and benefits were explained to the patient and her family in detail. DNP note has been reviewed, I agree with a documented findings and plan of care. Patient was seen and examined.
[2016-08-07 17:05] LABS: Glucose,Whole Blood 109 mg/dL (75-99)
[2016-08-07 21:04] LABS: Glucose,Whole Blood 128 mg/dL (75-99)
[2016-08-07] MEDS: LORazepam 0.5 MG TAB PO PRN (21:37)
[2016-08-08 04:06] LABS: Basophils % (A) 1 %; CH 31.6; CHCM 34.5; Eosinophils # (A) 0.1 k/uL (0-0.7); Eosinophils % (A) 3 %; HCT 34.7 % (34.0-46.0); HDW 2.31; HGB 11.7 gm/dL (11.4-16.0); Luc % (Auto) 2; Lymphocytes # (A) 0.9 k/uL (1.0-4.8); Lymphocytes % (A) 16 %; MCH 31.2 pg (25.0-35.0); MCHC 33.9 g/dL (31.0-37.0); Mean Platelet Volume 7.2; Monocytes # (A) 0.4 k/uL (0-1.0); Monocytes % (A) 7 %; Neutrophils # (A) 3.9 k/uL (1.3-7.7); Neutrophils % (A) 71 %; RBC 3.77 m/uL (3.80-5.40); RDW 13.7 % (11.5-15.5); WBC 5.4 k/uL (3.8-10.6); WBC (Perox) 5.56
[2016-08-08 04:18] LABS: ALT 29 U/L (9-52); AST 23 U/L (14-36); Alkaline Phosphatase 56 U/L (38-126); Anion Gap 11 mmol/L; Blood Urea Nitrogen 9 mg/dL (7-17); Carbon Dioxide 22 mmol/L (22-30); Chloride 101 mmol/L (98-107); Glucose 109 mg/dL (74-99); Non-African American GFR(MDRD) >60 (>60 ml/min/1.73 sqM); Potassium 3.6 mmol/L (3.5-5.1); Sodium 134 mmol/L (137-145); Total Bilirubin 0.4 mg/dL (0.2-1.3)
[2016-08-08] MEDS: INSULIN LISPRO (humaLOG) 300 UNIT/3 ML VIAL SQ SCH ×4 (06:07→21:17)
[2016-08-08] MEDS: LEVOTHYROXINE 100 MCG TAB PO SCH (06:10)
[2016-08-08 06:24] LABS: Glucose,Whole Blood 104 mg/dL (75-99)
[2016-08-08] MEDS ORDERED: ceFAZolin 2 GM in SODIUM CHLORIDE 0.9% 100 ML IVPB STA (07:14)
[2016-08-08] MEDS ORDERED: ceFAZolin 1,000 MG in SODIUM CHLORIDE 0.9% IRRIGATIO 250 ML IRRIGATION ONE (07:14)
[2016-08-08] MEDS: SODIUM CHLORIDE 0.9% 1,000 ML IV SCH (07:35)
[2016-08-08] MEDS ORDERED: IODIXANOL 320 MG/ML 100 ML IV ONE (07:36)
[2016-08-08] MEDS ORDERED: MIDAZOLAM 2 MG/2 ML VIAL ONE (07:47)
[2016-08-08] MEDS ORDERED: fentaNYL (PF) 50 MCG/ML 2 ML AMP ONE (07:47)
[2016-08-08] MEDS ORDERED: fentaNYL (PF) 50 MCG/ML 2 ML AMP IV ONE (07:50)
[2016-08-08] MEDS ORDERED: MIDAZOLAM 2 MG/2 ML VIAL IV ONE (07:51)
[2016-08-08] MEDS ORDERED: LIDOCAINE 1% INJ 10MG/ML (20 ML MDV) SQ ONE ×2 (07:58→08:01)
--- NOTE | 2016-08-08 08:48 | P.PCN ---
Date of Procedure: 08/08/16 Preoperative Diagnosis: Sick sinus syndrome and syncope with intermittent atrial fibrillation Postoperative Diagnosis: The same Procedure(s) Performed: Axillary venography, dual-chamber AICD implantation Implants: Indications for Procedure: Operative Findings: Description of Procedure: HISTORY: This is a 86-year-old female who was admitted to the hospital with recurrent episodes of syncope and evidence of sick sinus syndrome and intermittent atrial fibrillation with long pauses and patient is advised to have permanent pacemaker by Dr. VC Blackburn. CONSENT:I have discussed the risks, benefits and alternative therapies for the above-mentioned procedure and for both sedation/analgesia as well as necessary blood product administration, if indicated, as they pertain to this patient. The patient has indicated understanding and acceptance of the risks and procedures discussed. PROCEDURE: Patient was brought to the lab in a fasting state. Patient was prepped and draped in the usual fashion. Patient was given IV sedation with fentanyl and Versed. The skin below the left clavicle was infiltrated with lidocaine. An incision was made parallel to deltopectoral groove was deepened until the pectoral fascia was exposed. A pocket was created by blunt dissection and cautery. Axillary venography was performed to delineate the course of the axillary vein. 2 sticks were performed into extrathoracic portion of the axillary vein and 2 sheaths were advanced over the guidewires and left in subclavian vein. LEADS: ATRIAL: This is manufactured by [employer]. Model number is 7735. The serial number is [id number] VENTRICULAR: This is manufactured by [employer]. Model number is 7732. Serial number is [id number]. THE DEVICE: This is manufactured by [employer]. Model number is L101. Serial number is [id number] The ventricular lead is maneuvered l with help of a straight and curved stylets into the left ventricle apical region. Satisfactory position was obtained and threshold measurements were made. The atrial lead was then maneuvered into the right atrial appendage. And thresholds were obtained. THRESHOLDS: ATRIUM: Minimal patient threshold is 0. 6 at a pulse width of 0.5 ms. Impedance is 719 ohms. . P-wave: 4 mV VENTRICLE Yumiko Ama patient threshold was 0.4 V at pulse width of 0.5 ms. Impedance is 1029. R- wave: 12.4 mV The leads and pulse generator remained in the pocket after it was washed with antibiotics. Pocket was closed in the usual fashion. The fascia was closed with 2-0 Prolene ,the subcutaneous tissue was closed with 3-0 Prolene and the skin was closed with 4-0 Prolene. PROGRAMMING: MODE: DDDR. RATE: 60-110 OUTPUT: Atrium : 3.5 V at pulse width of 0.4 ms ventricle Yumiko 3.5 V at pulse width of 0.4 ms FINAL IMPRESSION: #1. Axillary venography #2. Dual-chamber permanent pacemaker implantation COMPLICATIONS: Nil PLAN: Continue monitoring on the telemetry unit. Continue prophylactic antibiotics. Possible discharge within next 24-48 hours.
[2016-08-08] MEDS ORDERED: LABETALOL 5 MG/ML VIAL MDV IVP STA (08:49)
[2016-08-08] MEDS ORDERED: LABETALOL SYRINGE 5 MG/ML ONE (08:50)
[2016-08-08] MEDS ORDERED: LABETALOL 5 MG/ML VIAL MDV IVP ONE (08:51)
[2016-08-08] MEDS: LISINOPRIL 10 MG TAB PO SCH (09:45)
[2016-08-08] MEDS: amLODIPine 10 MG TAB PO SCH (09:45)
[2016-08-08] MEDS: LINAGLIPTIN 5 MG TABLET PO SCH (09:46)
[2016-08-08] MEDS: PANTOPRAZOLE 40 MG TABLET PO SCH (09:46)
[2016-08-08] MEDS: ATORVASTATIN 20 MG TAB PO SCH (09:46)
[2016-08-08] MEDS: TAMSULOSIN 0.4 MG CAP.ER.24H PO SCH (09:46)
[2016-08-08] MEDS: CLOPIDOGREL 75 MG TAB PO SCH (10:45)
[2016-08-08 11:52] LABS: Glucose,Whole Blood 172 mg/dL (75-99)
[2016-08-08] MEDS: ceFAZolin 2 GM in SODIUM CHLORIDE 0.9% 100 ML IVPB SCH ×3 (12:07→23:36)
--- NOTE | 2016-08-08 13:11 | P.PN ---
Subjective 86-year-old female underwent today a dual-chamber [employer] permanent pacemaker by cardiology service for sick sinus syndrome and syncopal with intermittent atrial fibrillation. This 86-year-old female initially was admitted to the hospital with syncopal episodes. Patient was noted to be having recurrent episodes of long pauses with intermittent atrial fibrillation evidence of sick sinus syndrome. Patient was advised to undergo permanent pacemaker. Patient elected to proceed. Objective - Vital Signs Vital signs: Vital Signs Temp 96.6 F L 08/08/16 11:43 Pulse 70 08/08/16 12:15 Resp 16 08/08/16 12:15 BP 162/71 08/08/16 12:15 Pulse Ox 96 08/08/16 12:15 Intake & Output 08/07/16 08/08/16 08/08/16 18:59 06:59 18:59 Intake Total 840 10 350 Output Total 750 3350 1000 Balance 90 -3340 -650 Weight 70 kg Intake: IV 10 350 0.9 10 Intake, IV Titration 240 Amount Sodium Chloride 0.9% 1, 240 000 ml @ 20 mls/hr IV . Q24H [facility] Rx#:[id number] Oral 600 Output: Urine 750 3350 1000 Straight 600 Other: Voiding Method Toilet Indwelling Catheter Indwelling Catheter Bedside Commode # Voids 1 0 # Bowel Movements 1 0 - Exam Physical exam 86-year-old female resting comfortably in bed no new events noted Lungs anterior essentially clear adequate air movement Heart S1-S2 audible regular Abdomen soft nontender Extremities no edema noted - Labs CBC & Chem 7: 08/08/16 03:41 08/08/16 03:41 Labs: Abnormal Lab Results - Last 24 Hours (Table) 08/07/16 08/07/16 08/08/16 Range/Units 17:03 21:01 03:41 RBC (3.80-5.40) m/uL Lymphocytes # (1.0-4.8) k/uL Sodium 134 L (137-145) mmol/L Glucose 109 H (74-99) mg/dL POC Glucose (mg/dL) 109 H 128 H (75-99) mg/dL Total Protein 6.0 L (6.3-8.2) g/dL 08/08/16 08/08/16 08/08/16 Range/Units 03:41 06:22 11:49 RBC 3.77 L (3.80-5.40) m/uL Lymphocytes # 0.9 L (1.0-4.8) k/uL Sodium (137-145) mmol/L Glucose (74-99) mg/dL POC Glucose (mg/dL) 104 H 172 H (75-99) mg/dL Total Protein (6.3-8.2) g/dL Assessment and Plan Plan: Impression Present on admission dizziness lightheadedness presyncopal episode suspect due to multiple episodes of pauses greater than 3 seconds with 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 Paroxysmal atrial fibrillation on Xarelto Present on admission hypertension urgency Known coronary artery disease with prior coronary stenting 2016 in [facility] Hypothyroid Hyperlipidemia Type 2 diabetes non-insulin hemoglobin A1c 6.2 Echocardiogram August 06 left ventricular systolic function normal with an EF between 60 and 65% 12-lead EKG shows evidence of trifascicular block suspect resulting in multiple episodes of pauses greater than 3 seconds symptomatic with dizziness lightheadedness syncopal episodes [employer] dual-chamber permanent pacemaker implantation done on August 07 Plan Continue cardiology service recommendations beta da being held Postop pacemaker care per cardiology's recommendations Continue prophylactic antibiotics Repeat labs in the morning Monitor blood pressure and heart rate address as indicated Fall precautions Further recommendations pending The above impression and plan of care have been discussed and directed by signing physician. Giovana Franklin nurse practitioner acting as scribe for signing physician.
--- NOTE | 2016-08-08 13:25 | CONS ---
CONSULTATION: This is an 86-year-old female. She has been admitted by Dr. Robbie Paulson's service. She had an episode of some swelling of the forehead and some dizziness and some heaviness feeling in the chest, 7/10 in severity. No fever, chills. Patient has atrial fibrillation. No history of any motor deficit. No history of amaurosis fugax. PERSONAL HISTORY: No known drug allergies. MEDICAL AND SURGICAL HISTORY: Atrial fibrillation, coronary artery disease, diabetes mellitus, hyperlipidemia, hypertension, CO in the past. Patient had a cholecystectomy and had heart catheterization and stent placed in the past. On examination, patient was seen in her room. Her vitals are stable. Neck is supple, no bruit appreciated. Chest is clear. Abdomen is soft. Neuro is stable, normal motor function of the left lower extremity. Patient had ultrasound of the carotid which shows 50% to 79% stenosis. At this point, patient is symptomatic from his carotid artery and there is no history of TIA or amaurosis fugax. Will follow with you. Will follow in my office in 1 month. BRIAN
[2016-08-08] MEDS: ACETAMINOPHEN TAB 325 MG TAB PO PRN ×2 (14:36→22:30)
--- NOTE | 2016-08-08 14:41 | P.GSCN ---
History of Present Illness Consult date: 08/08/16 History of present illness: The patient is an 86-year-old female in the hospital with dizziness welling and shortness of breath. She has multiple cardiac issues. She has had a Bruno maker placed as well as some diuresis during this hospitalization. She is gone in urine retention as an indwelling catheter. I've been asked see the patient. Patient urologic history is significant for hysterectomy with bladder suspension some 30-40 years ago in [place]. She is seen by urologist in [place] about 3-4 years ago for recurring urinary infection. She states that nothing was identified in that her bladder was emptying. She does have urgency and urgency incontinence. He does have frequency of urination. Her residual was around 500 mL. His no major bowel issues. Review of Systems - Constitutional Reports as per HPI - Cardiovascular Reports as per HPI - Genitourinary Genitourinary: Reports as per HPI Past Medical History Past Medical History: Atrial Fibrillation, Coronary Artery Disease (CAD), Diabetes Mellitus, Hyperlipidemia, Hypertension, Myocardial Infarction (IA), Thyroid Disorder Last Myocardial Infarction Date:: 2015 History of Any Multi-Drug Resistant Organisms: None Reported Past Surgical History: Cholecystectomy, Heart Catheterization With Stent, Hysterectomy Additional Past Surgical History / Comment(s): cataract surgery bilat Past Anesthesia/Blood Transfusion Reactions: No Reported Reaction Date of Last Stent Placement:: 2015 Past Psychological History: No Psychological Hx Reported Smoking Status: Never smoker - Past Family History Father Additional Family Medical History / Comment(s): in train accident Mother Additional Family Medical History / Comment(s): from car accident Daughter(s) Family Medical History: No Reported History Son(s) Family Medical History: Cancer Additional Family Medical History / Comment(s): hep c, cancer Medications and Allergies Home Medications Medication Instructions Recorded Confirmed Type Clopidogrel [Plavix] 75 mg PO DAILY 08/05/16 08/05/16 History Eltroxin 100mcg 100 mcg PO DAILY 08/05/16 08/05/16 History Lisinopril [Zestril] 10 mg PO DAILY 08/05/16 08/05/16 History Metoprolol Succinate [Toprol XL] 25 mg PO BID 08/05/16 08/05/16 History Pantoprazole Sodium [Protonix] 40 mg PO DAILY 08/05/16 08/05/16 History Rivaroxaban [Xarelto] 20 mg PO DAILY 08/05/16 08/05/16 History Rosuvastatin [Crestor] 10 mg PO DAILY 08/05/16 08/05/16 History amLODIPine [Norvasc] 10 mg PO DAILY 08/05/16 08/05/16 History sitaGLIPtin [Januvia] 50 mg PO DAILY 08/05/16 08/05/16 History Allergies Allergy/AdvReac Type Severity Reaction Status Date / Time No Known Allergies Allergy Verified 08/05/16 20:13 Surgical - Exam Vital Signs Temp Pulse Resp BP Pulse Ox 97.9 F 60 22 190/93 100 08/05/16 14:16 08/05/16 14:16 08/05/16 14:16 08/05/16 14:16 08/05/16 14:16 - General well developed, well nourished, no distress - ENT no hearing loss - Respiratory normal expansion, normal respiratory effort - Abdomen Abdomen: soft, non tender - Neurologic normal coordination, normal sensation - Psychiatric oriented to time, oriented to person, oriented to place, speech is normal, memory intact Results - Labs 08/08/16 03:41 08/08/16 03:41 Abnormal Lab Results - Last 24 Hours (Table) 08/07/16 08/07/16 08/08/16 Range/Units 17:03 21:01 03:41 RBC (3.80-5.40) m/uL Lymphocytes # (1.0-4.8) k/uL Sodium 134 L (137-145) mmol/L Glucose 109 H (74-99) mg/dL POC Glucose (mg/dL) 109 H 128 H (75-99) mg/dL Total Protein 6.0 L (6.3-8.2) g/dL 08/08/16 08/08/16 08/08/16 Range/Units 03:41 06:22 11:49 RBC 3.77 L (3.80-5.40) m/uL Lymphocytes # 0.9 L (1.0-4.8) k/uL Sodium (137-145) mmol/L Glucose (74-99) mg/dL POC Glucose (mg/dL) 104 H 172 H (75-99) mg/dL Total Protein (6.3-8.2) g/dL Diabetes panel 08/08/16 Range/Units 03:41 Sodium 134 L (137-145) mmol/L Potassium 3.6 (3.5-5.1) mmol/L Chloride 101 (98-107) mmol/L Carbon Dioxide 22 (22-30) mmol/L BUN 9 (7-17) mg/dL Creatinine 0.70 (0.52-1.04) mg/dL Glucose 109 H (74-99) mg/dL Calcium 9.0 (8.4-10.2) mg/dL AST 23 (14-36) U/L ALT 29 (9-52) U/L Alkaline Phosphatase 56 (38-126) U/L Total Protein 6.0 L (6.3-8.2) g/dL Albumin 3.5 (3.5-5.0) g/dL Calcium panel 08/08/16 Range/Units 03:41 Calcium 9.0 (8.4-10.2) mg/dL Albumin 3.5 (3.5-5.0) g/dL Pituitary panel 08/08/16 Range/Units 03:41 Sodium 134 L (137-145) mmol/L Potassium 3.6 (3.5-5.1) mmol/L Chloride 101 (98-107) mmol/L Carbon Dioxide 22 (22-30) mmol/L BUN 9 (7-17) mg/dL Creatinine 0.70 (0.52-1.04) mg/dL Glucose 109 H (74-99) mg/dL Calcium 9.0 (8.4-10.2) mg/dL Adrenal panel 08/08/16 Range/Units 03:41 Sodium 134 L (137-145) mmol/L Potassium 3.6 (3.5-5.1) mmol/L Chloride 101 (98-107) mmol/L Carbon Dioxide 22 (22-30) mmol/L BUN 9 (7-17) mg/dL Creatinine 0.70 (0.52-1.04) mg/dL Glucose 109 H (74-99) mg/dL Calcium 9.0 (8.4-10.2) mg/dL Total Bilirubin 0.4 (0.2-1.3) mg/dL AST 23 (14-36) U/L ALT 29 (9-52) U/L Alkaline Phosphatase 56 (38-126) U/L Total Protein 6.0 L (6.3-8.2) g/dL Albumin 3.5 (3.5-5.0) g/dL Assessment and Plan Plan: Impression: Acute urinary retention. Chronic urinary frequency with urgency. Multiple cardiac issues. Recommendation: It is very possible that this retention is due to diuresis and immobility. She is ambulatory I would hold her catheter and give her a voiding trial. I would check residuals after each void to make sure she is emptying adequately. If she is nothing further urologic needs to be done as she has had chronic frequency and urgency that has been evaluated in the past. However if the patient does not void adequately or she wishes to have her urgency and frequency readdressed I be glad to see her in the office.
[2016-08-08 16:43] LABS: Glucose,Whole Blood 138 mg/dL (75-99)
[2016-08-08 20:43] LABS: Glucose,Whole Blood 145 mg/dL (75-99)
[2016-08-08] MEDS: LORazepam 0.5 MG TAB PO PRN (22:30)
[2016-08-09 05:35] LABS: Glucose,Whole Blood 146 mg/dL (75-99)
[2016-08-09] MEDS: INSULIN LISPRO (humaLOG) 300 UNIT/3 ML VIAL SQ SCH ×2 (05:40→12:19)
[2016-08-09] MEDS: ceFAZolin 2 GM in SODIUM CHLORIDE 0.9% 100 ML IVPB SCH (05:40)
[2016-08-09] MEDS: SODIUM CHLORIDE 0.9% 1,000 ML IV SCH (05:43)
[2016-08-09] MEDS: LEVOTHYROXINE 100 MCG TAB PO SCH (06:06)
[2016-08-09 06:54] LABS: ALT 17 U/L (9-52); AST 25 U/L (14-36); Alkaline Phosphatase 53 U/L (38-126); Anion Gap 11 mmol/L; Blood Urea Nitrogen 9 mg/dL (7-17); Calcium 8.6 mg/dL (8.4-10.2); Carbon Dioxide 19 mmol/L (22-30); Chloride 103 mmol/L (98-107); Glucose 144 mg/dL (74-99); Non-African American GFR(MDRD) >60 (>60 ml/min/1.73 sqM); Potassium 3.5 mmol/L (3.5-5.1); Sodium 133 mmol/L (137-145); Total Bilirubin 0.5 mg/dL (0.2-1.3); Total Protein 6.1 g/dL (6.3-8.2)
--- NOTE | 2016-08-09 07:43 | XR ---
EXAMINATION TYPE: XR chest 2V DATE OF EXAM: 08/09/2016 COMPARISON: 08/05/2016 INDICATION: Post pacemaker placement TECHNIQUE: Frontal and lateral views of the chest are obtained. FINDINGS: The heart size is normal. The pulmonary vasculature is normal. There may be some fullness along the left diaphragm in the retrocardiac position. There is a prior hi atal hernia which could account for this finding. The lungs are otherwise clear. 2-lead pacemaker is been placed with leads in typical orientation. No pneumothorax is present. IMPRESSION: 1. Hiatal hernia. 2. No pneumothorax post pacemaker placement
[2016-08-09 09:23] VITALS: RESP 16; TEMP 97.4
[2016-08-09] MEDS: PANTOPRAZOLE 40 MG TABLET PO SCH (09:23)
[2016-08-09] MEDS: LISINOPRIL 10 MG TAB PO SCH (09:23)
[2016-08-09] MEDS: amLODIPine 10 MG TAB PO SCH (09:23)
[2016-08-09] MEDS: TAMSULOSIN 0.4 MG CAP.ER.24H PO SCH (09:23)
[2016-08-09] MEDS: LINAGLIPTIN 5 MG TABLET PO SCH (09:23)
[2016-08-09] MEDS: ATORVASTATIN 20 MG TAB PO SCH (09:23)
[2016-08-09] MEDS ORDERED: POTASSIUM CHLORIDE ER 20 MEQ TAB.ER PO STA (10:46)
[2016-08-09 11:43] LABS: Glucose,Whole Blood 110 mg/dL (75-99)
[2016-08-09 14:20] VITALS: BP 179/74; PULSE 80
--- NOTE | 2016-08-09 14:35 | P.DS ---
Providers Date of admission: 08/06/16 16:05 Expected date of discharge: 08/09/16 Attending physician: Robbie Paulson Consults: 08/05/16 15:53 Consult Physician Urgent Consulting Provider: Adeel Simmons Consult Reason/Comments: Chest pain Do you want consulting provider notified?: Yes 08/06/16 16:57 Consult Physician Routine Consulting Provider: Bayron Parrish Consult Reason/Comments: ICA stenosis BAYLEE 50-69% Do you want consulting provider notified?: Yes 08/08/16 11:42 Consult Physician Routine Consulting Provider: Nathan Hodges Consult Reason/Comments: Urinary retention, frequent UTI Do you want consulting provider notified?: Yes Primary care physician: Physician Nonstaff Hospital Course: 86-year-old female presented with a chief complaint of dizziness lightheadedness with difficult time ambulating with chest heaviness. Patient has a history of hypertension hyperlipidemia coronary artery disease with prior coronary stenting. Patient reportedly lives in [place]. Patient stated that she was in [place] visiting her daughter stated that she noticed the above- mentioned symptoms came into the emergency room to be evaluated. Patient stated that she been having intermittent episodes where she feels dizzy lightheaded as if she could almost passed out. Patient was seen in the emergency room and admitted to the services of the attending with a cardiology consultation requested. The EKG on admission showed normal sinus rhythm with a first-degree AV block with a right bundle branch in the left anterior fascicular block. Subsequent EKGs showed atrial fibrillation with a right bundle-branch and occasional PVCs. Patient was noted to have several pauses lasting approximately 3 seconds. It's noted the patient is on Xarelto for her paroxysmal atrial fibrillation also was taking metoprolol 25 twice a day. Chest x-ray on admission showed a large hiatal hernia. Carted medically. CAT scan of the brain showing chronic small vessel ischemia. There were no acute abnormalities. Carotid Doppler studies obtained showed no significant carotid stenosis. Blood pressure on arrival was elevated 190/90. Troponins 3 were negative. The BNP 890. Cardiology recommended that patient's Xarelto and beta da be held. In anticipation patient may require implantation permanent pacemaker was monitored closely was seen by moriah Hallman. Recommendations were to proceed with a permanent pacemaker. Patient elected to do so and on July 31 did undergo stool should chamber pacemaker [employer]. Postop there were no postop events. Patient as mentioned does live in [place] and the plan was for the patient to be discharged on August 09 with a follow-up with her own PCP in [place] and she would stay with her daughter who lives in [facility] Patient did have an episode of urinary retention was seen by Dr. Cortes urology. Patient had urgency incontinence. Patient does give a history of having hysterectomy and bladder suspension 30-40 years ago in [place]. Seen by a urologist in [place] about 3-4 years ago. Patient stated that she has not had any issues since. 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 Paroxysmal atrial fibrillation on Xarelto Present on admission hypertension urgency Known coronary artery disease with prior coronary stenting 2016 in [facility] Hypothyroid Hyperlipidemia Type 2 diabetes non-insulin hemoglobin A1c 6.2 Echocardiogram August 06 left ventricular systolic function normal with an EF between 60 and 65% 12-lead EKG shows evidence of trifascicular block suspect resulting in multiple episodes of pauses greater than 3 seconds symptomatic with dizziness lightheadedness syncopal episodes [employer] dual-chamber permanent pacemaker implantation done on August 07 2016 Postprocedure acute urinary retention resolved History of chronic urinary frequency with urgency The above impression and plan of care have been discussed and directed by signing physician. Giovana Franklin nurse practitioner acting as scribe for signing physician. Patient Condition at Discharge: Stable Plan - Discharge Summary New Discharge Prescriptions: New Tamsulosin [Flomax] 0.4 mg PO PC-BRKFST #30 cap Rivaroxaban [Xarelto] 20 mg PO DAILY #30 tab Clopidogrel [Plavix] 75 mg PO DAILY #30 tablet amLODIPine [Norvasc] 10 mg PO DAILY #30 tab Lisinopril [Zestril] 10 mg PO DAILY #30 tab Linagliptin [Tradjenta] 5 mg PO DAILY #30 tab Continue Rosuvastatin [Crestor] 10 mg PO DAILY Rivaroxaban [Xarelto] 20 mg PO DAILY Pantoprazole Sodium [Protonix] 40 mg PO DAILY Metoprolol Succinate [Toprol XL] 25 mg PO BID Lisinopril [Zestril] 10 mg PO DAILY Clopidogrel [Plavix] 75 mg PO DAILY Eltroxin 100mcg 100 mcg PO DAILY amLODIPine [Norvasc] 10 mg PO DAILY #30 sitaGLIPtin [Januvia] 50 mg PO DAILY #30 Discharge Medication List Clopidogrel [Plavix] 75 mg PO DAILY 08/05/16 [History] Eltroxin 100mcg 100 mcg PO DAILY 08/05/16 [History] Lisinopril [Zestril] 10 mg PO DAILY 08/05/16 [History] Metoprolol Succinate [Toprol XL] 25 mg PO BID 08/05/16 [History] Pantoprazole Sodium [Protonix] 40 mg PO DAILY 08/05/16 [History] Rivaroxaban [Xarelto] 20 mg PO DAILY 08/05/16 [History] Rosuvastatin [Crestor] 10 mg PO DAILY 08/05/16 [History] Clopidogrel [Plavix] 75 mg PO DAILY #30 tablet 08/09/16 [Rx] Linagliptin [Tradjenta] 5 mg PO DAILY #30 tab 08/09/16 [Rx] Lisinopril [Zestril] 10 mg PO DAILY #30 tab 08/09/16 [Rx] Rivaroxaban [Xarelto] 20 mg PO DAILY #30 tab 08/09/16 [Rx] Tamsulosin [Flomax] 0.4 mg PO PC-BRKFST #30 cap 08/09/16 [Rx] amLODIPine [Norvasc] 10 mg PO DAILY #30 08/09/16 [Rx] amLODIPine [Norvasc] 10 mg PO DAILY #30 tab 08/09/16 [Rx] sitaGLIPtin [Januvia] 50 mg PO DAILY #30 08/09/16 [Rx] Follow up Appointment(s)/Referral(s): Nonstaff,Physician [Primary Care Provider] - 1-2 days Jerica Velasquez MD [STAFF PHYSICIAN] - 1 Week Activity/Diet/Wound Care/Special Instructions: Postop pacemaker instructions to be provided Postop activity guidelines with a pacemaker left arm in a sling Patient will follow-up with her own PCP and [facility] Discharge Disposition: HOME SELF-CARE
--- NOTE | 2016-08-09 15:02 | P.PN ---
Subjective Principal diagnosis: Dizziness This pleasant 86-year-old female with history of hypertension, hyperlipidemia, coronary artery disease, hypothyroidism and paroxysmal atrial fibrillation who presented to the hospital with symptoms of dizziness and near syncope. 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 She was also noted on her telemetry strips to have significant pauses of greater than 3 seconds. Xarelto was placed on hold, as well as her beta da. She has had no further episodes of syncope or dizziness here. No further pauses noted through the night last night. Patient will be scheduled to undergo implantation of a permanent pacemaker tomorrow by Dr. Velasquez. 2016 Patient underwent implantation of a permanent pacemaker yesterday. Device was interrogated this morning and is functioning appropriately. Site of pacemaker implantation, dressing is dry and intact, no evidence of any swelling or hematoma. From cardiology's perspective, patient may be able to be discharged home today we will continue xarelto 15 mg daily along with Plavix 75 mg daily. We will resume Toprol 25 mg one tablet by mouth twice a day. Objective - Vital Signs Vital signs: Vital Signs Temp 97.4 F L 08/09/16 09:22 Pulse 80 08/09/16 12:20 Resp 16 08/09/16 12:20 BP 179/74 08/09/16 12:20 Pulse Ox 98 08/09/16 12:20 Intake & Output 08/08/16 08/09/16 08/09/16 18:59 06:59 18:59 Intake Total 1270 300 560 Output Total 1250 1250 200 Balance 20 -950 360 Weight 71.6 kg Intake: IV 350 300 Sodium Chloride 0.9% 1, 200 000 ml @ 20 mls/hr IV . Q24H EMILIANO Rx#:[id number] ceFAZolin 2 gm In Sodium 100 Chloride 0.9% 100 ml @ 100 mls/hr IVPB Q6H EMILIANO Rx#:[id number] Intake, IV Titration 440 Amount Sodium Chloride 0.9% 1, 240 000 ml @ 20 mls/hr IV . Q24H EMILIANO Rx#:[id number] ceFAZolin 2 gm In Sodium 200 Chloride 0.9% 100 ml @ 100 mls/hr IVPB Q6H EMILIANO Rx#:[id number] Oral 480 560 Output: Urine 1250 1250 200 Uretheral (Del Rosario) 250 Other: Voiding Method Indwelling Catheter Bedside Commode Bedside Commode # Voids 0 1 0 # Bowel Movements 0 - Exam PHYSICAL EXAMINATION: HEENT: Head is atraumatic, normocephalic. Pupils equal, round. Neck is supple. There is no elevated jugular venous pressure. HEART EXAMINATION: S1 and S2 a systolic ejection murmur is heard. CHEST EXAMINATION: Lungs are clear to auscultation and precussion. No chest wall tenderness is noted on palpation or with deep breathing. Site of pacemaker implantation, dressing is dry and intact, no swelling or hematoma noted ABDOMEN: Soft, nontender. Bowel sounds are heard. No organomegaly noted. EXTREMITIES: 1+ peripheral pulses with trace evidence of peripheral edema and no calf tenderness noted]. NEUROLOGIC [patient is awake, alert and oriented -3.] . - Labs CBC & Chem 7: 08/08/16 03:41 08/09/16 05:43 Labs: Abnormal Lab Results - Last 24 Hours (Table) 08/08/16 08/08/16 08/09/16 Range/Units 16:38 20:42 05:34 Sodium (137-145) mmol/L Carbon Dioxide (22-30) mmol/L Glucose (74-99) mg/dL POC Glucose (mg/dL) 138 H 145 H 146 H (75-99) mg/dL Total Protein (6.3-8.2) g/dL Albumin (3.5-5.0) g/dL 08/09/16 08/09/16 Range/Units 05:43 11:42 Sodium 133 L (137-145) mmol/L Carbon Dioxide 19 L (22-30) mmol/L Glucose 144 H (74-99) mg/dL POC Glucose (mg/dL) 110 H (75-99) mg/dL Total Protein 6.1 L (6.3-8.2) g/dL Albumin 3.3 L (3.5-5.0) g/dL Assessment and Plan Plan: Assessment and plan #1 near syncope with 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 #2 known history of coronary artery disease with prior myocardial infarction and stent placement approximately one year ago in [facility] #3 hypertension, accelerated. #4 history of hypertension Number 5 hyperlipidemia #6 paroxysmal atrial fibrillation on xarelto 20 mg daily #7 diabetes #8 hypothyroidism Plan Patient underwent implantation of a permanent pacemaker yesterday, device was interrogated this morning and is functioning appropriately. She may be able to be discharged home today on xarelto 15 mg daily along with the Plavix, this will be resumed tomorrow. We will also resume more Toprol 25 mg daily. A follow-up appointment will be made with Dr. VC Blackburn in the office in one week. DNP note has been reviewed, I agree with a documented findings and plan of care. Patient was seen and examined.
== END 2016-08-09 16:57 | disposition home or self-care (01) | DRG 243 ==
LOC: EC 14:04 → 6SEL 15:53 → 3OBS 19:23 → 6SEL 08-06 13:27 → OBSVTOIN 08-06 16:05
PROVIDERS: ADMIT Family Medicine; ATTEND Family Medicine
PROC: 02HL3JZ Insertion of Pacemaker Lead into Left Ventricle, Percutaneous Approach (ICD-10-PCS; 2016-08-08)
PROC: 02H63JZ Insertion of Pacemaker Lead into Right Atrium, Percutaneous Approach (ICD-10-PCS; 2016-08-08)
PROC: 0JH606Z Insertion of Pacemaker, Dual Chamber into Chest Subcutaneous Tissue and Fascia, Open Approach (ICD-10-PCS; principal; 2016-08-08 07:15)
DX: I49.5 Sick sinus syndrome (principal); I45.3 Trifascicular block; I48.0 Paroxysmal atrial fibrillation; I65.23 Occlusion and stenosis of bilateral carotid arteries; I10 Essential (primary) hypertension; E11.9 Type 2 diabetes mellitus without complications; E03.9 Hypothyroidism, unspecified; E78.5 Hyperlipidemia, unspecified; I25.10 Atherosclerotic heart disease of native coronary artery without angina pectoris; I25.2 Old myocardial infarction; K21.9 Gastro-esophageal reflux disease without esophagitis; K44.9 Diaphragmatic hernia without obstruction or gangrene; N39.41 Urge incontinence; R35.0 Frequency of micturition; I16.0 Hypertensive urgency; R33.9 Retention of urine, unspecified; Z79.01 Long term (current) use of anticoagulants; Z79.02 Long term (current) use of antithrombotics/antiplatelets; Z79.899 Other long term (current) drug therapy; Z95.5 Presence of coronary angioplasty implant and graft
CPT/HCPCS: 33208; 36415; 70450; 71020; 80053; 80061; 81001; 82550; 82553; 83036; 83735; 83880; 84439; 84443; 84481; 84484; 85025; 85379; 93005; 93306; 93880; 96360; 99285

== ENCOUNTER → 2017-10-15 | Outpatient (CLI) | payer MEDICARE ==
--- NOTE | 2017-10-15 13:52 | CT ---
EXAMINATION TYPE: CT lumbar spine wo con DATE OF EXAM: 10/15/2017 1:35 PM COMPARISON: None HISTORY: Low back pain radiating down left leg. CT DLP: 943 mGycm Automated exposure control for dose reduction was used. Unenhanced CT of the lumbar spine was performed. Bone and soft tissue window settings are submitted as well as coronal and sagittal reconstructions. Heterogeneous marrow appearance is nonspecific. L1-L2: Hypertrophic changes and degenerative disc disease. No canal stenosis or disc herniation. No f oraminal encroachment. L2-L3: Severe degenerative disc disease. Circumferential disc bulging. Mild effacement of thecal sac. Mild bilateral foraminal encroachment. L3-L4: Severe degenerative disc disease with circumferential disc bulging and moderate effacement of thecal sac. Suspect mild central stenosis with hypertrophic change of facet joints. Mild bilateral fo raminal encroachment. L4-L5: Severe degenerative disc disease with broad-based central disc protrusion and moderate efface ment of thecal sac. Suspect moderate central stenosis with hypertrophic change of facet joints. Mild bilateral foraminal encroachment. L5-S1: Severe degenerative disc disease. Hypertrophic spurring and facet arthropathy contribute to bi lateral foraminal encroachment greater on the right. No definite central stenosis. There is a localized aortic dissection at the level of L2-L4. This may be chronic. Referring physicia n notified by telephone. IMPRESSION: 1. Multilevel severe degenerative disc disease with multilevel disc bulging or protrusions and facet arthropathy resulting in multilevel canal stenosis most marked findings at L4-L5. 2. Localized aortic dissection L3-L4. No prior exams are available to assess chronicity. Finding coul d be chronic correlate clinically. A [place] level critical message alert has been initiated for eSrgo Martinez DO via the [employer] Critical Results System on 10/15/2017 1:47 PM. This message alert has been sent to Sergo Martinez DO via the preferences provided by the clinician for the receipt of Radiology Critical Findings. Message ID [id number].
== END | disposition home or self-care (01) ==
LOC: RADCTMAIN 13:06
PROVIDERS: ATTEND Orthopaedic Surgery Orthopaedic Surgery of the Spine
DX: M48.061 Spinal stenosis, lumbar region without neurogenic claudication (principal); M51.16 Intervertebral disc disorders with radiculopathy, lumbar region; M46.96 Unspecified inflammatory spondylopathy, lumbar region; Z98.890 Other specified postprocedural states
CPT/HCPCS: 72131

== ENCOUNTER 2017-10-16 16:27 | Inpatient (IN) | payer MEDICARE ==
[2017-10-16] MEDS ORDERED: MORPHINE SULFATE 4 MG/ML SYRINGE IV STA (16:59)
[2017-10-16] MEDS ORDERED: SODIUM CHLORIDE 0.9% 1,000 ML IV STA (16:59)
--- NOTE | 2017-10-16 17:03 | ED ---
General Adult HPI - General Chief complaint: Recheck/Abnormal Lab/Rx Stated complaint: back pain Time Seen by Provider: 10/16/17 16:44 Source: patient, family, RN notes reviewed Mode of arrival: wheelchair Limitations: no limitations - History of Present Illness Initial comments: Patient is a pleasant 87-year-old female presenting to the emergency department with complaints of back discomfort. Patient does have chronic back pain. Patient did have a fall back in May and has been extensively increased back pain since that time. Patient does live in [place]. Patient did come to see a back doctor with hopes of getting an epidural. Patient did have computed tomography scan done yesterday. Patient was called today and told there was concerns regarding possible uric dissection and advised to come to the emergency department. Patient states back discomfort has been worse for the past 3 days. Discomfort feels more like burning. Discomfort is or lumbar region. Discomfort is worse with walking and certain positions. No abdominal pain. No weakness. No change in color of the legs. - Related Data Home Medications Medication Instructions Recorded Confirmed Eltroxin 100mcg 100 mcg PO DAILY 08/05/16 10/16/17 Pantoprazole Sodium [Protonix] 40 mg PO DAILY 08/05/16 10/16/17 Rosuvastatin [Crestor] 10 mg PO DAILY 08/05/16 10/16/17 Acetaminophen-Codeine 300-30mg 1 tab PO Q8H PRN 10/16/17 10/16/17 [Tylenol w/codeine #3] Aspirin EC [Ecotrin Low Dose] 81 mg PO DAILY 10/16/17 10/16/17 Furosemide [Lasix] 20 mg PO DAILY 10/16/17 10/16/17 Lisinopril [Zestril] 10 mg PO BID 10/16/17 10/16/17 Metoprolol Tartrate [Lopressor] 25 mg PO BID 10/16/17 10/16/17 Rivaroxaban [Xarelto] 15 mg PO DAILY 10/16/17 10/16/17 Previous Rx's Medication Instructions Recorded amLODIPine [Norvasc] 10 mg PO DAILY #30 tab 08/09/16 sitaGLIPtin [Januvia] 50 mg PO DAILY #30 08/09/16 Allergies Allergy/AdvReac Type Severity Reaction Status Date / Time No Known Allergies Allergy Verified 10/16/17 17:00 Review of Systems ROS Statement: Those systems with pertinent positive or pertinent negative responses have been documented in the HPI. ROS Other: All systems not noted in ROS Statement are negative. Constitutional: Denies: fever Eyes: Denies: eye pain ENT: Denies: ear pain Respiratory: Denies: cough Cardiovascular: Denies: chest pain Endocrine: Denies: fatigue Gastrointestinal: Denies: abdominal pain Genitourinary: Denies: dysuria Musculoskeletal: Reports: back pain Skin: Denies: rash Neurological: Denies: weakness Past Medical History Past Medical History: Atrial Fibrillation, Coronary Artery Disease (CAD), Diabetes Mellitus, Hyperlipidemia, Hypertension, Myocardial Infarction ([place]), Thyroid Disorder Last Myocardial Infarction Date:: 2015 History of Any Multi-Drug Resistant Organisms: None Reported, ESBL Date of last positivie culture/infection: 2016 MDRO Source:: urine Past Surgical History: Cholecystectomy, Heart Catheterization With Stent, Hysterectomy Additional Past Surgical History / Comment(s): cataract surgery bilat Past Anesthesia/Blood Transfusion Reactions: No Reported Reaction Date of Last Stent Placement:: 2015 Past Psychological History: No Psychological Hx Reported Smoking Status: Never smoker Past Alcohol Use History: None Reported Past Drug Use History: None Reported - Past Family History Father Additional Family Medical History / Comment(s): in train accident Mother Additional Family Medical History / Comment(s): from car accident Daughter(s) Family Medical History: No Reported History Son(s) Family Medical History: Cancer Additional Family Medical History / Comment(s): hep c, cancer General Exam Limitations: no limitations General appearance: alert, in no apparent distress Head exam: Present: atraumatic Eye exam: Present: normal appearance Neck exam: Present: normal inspection Respiratory exam: Present: normal lung sounds bilaterally Cardiovascular Exam: Present: regular rate, normal rhythm Expanded Peripheral pulses: 2+: Radial (R), Radial (L), Posterior Tibialis (R), Posterior Tibialis (L), Dorsalis Pedis (R), Dorsalis Pedis (L) GI/Abdominal exam: Present: soft, normal bowel sounds. Absent: distended, tenderness, guarding, rebound, rigid, pulsatile mass Extremities exam: Present: normal inspection, other (Straight leg raise positive bilateral at 45). Absent: pedal edema, calf tenderness Back exam: Present: tenderness (Mild tenderness lower lumbar region.) Neurological exam: Present: alert. Absent: motor sensory deficit Psychiatric exam: Present: normal affect, normal mood Skin exam: Present: normal color Course Vital Signs 10/16/17 10/16/17 10/16/17 16:32 19:23 20:24 Temperature 97.3 F L Pulse Rate 67 64 64 Respiratory 18 18 18 Rate Blood Pressure 138/81 160/68 152/72 O2 Sat by Pulse 97 100 100 Oximetry EKG Findings - EKG Comments: EKG Findings:: Atrial paced rhythm with a rate of 60. ID 248. QRS 126. QT 452. QTC 42. Left axis. Right bundle branch block. LVH criteria. No acute ST change. Medical Decision Making - Medical Decision Making Patient reevaluated and resting comfortably in bed. Patient and family are updated on results and plan. Case was discussed in detail with Dr. Parrish who does not feel patient has an emergent surgical need. He does recommend controlling patient's blood pressure. He does recommend admission and he will evaluate. Case was also discussed in detail with Dr. Gomez who will admit for hospital call. He does recommend increasing the Lopressor dose and holding Xarelto. - Lab Data Result diagrams: 10/16/17 16:55 10/16/17 16:55 Lab Results 10/16/17 10/16/17 10/16/17 Range/Units 16:55 16:55 16:55 WBC 7.0 (3.8-10.6) k/uL RBC 4.01 (3.80-5.40) m/uL Hgb 11.7 (11.4-16.0) gm/dL Hct 35.9 (34.0-46.0) % MCV 89.5 (80.0-100.0) fL MCH 29.1 (25.0-35.0) pg MCHC 32.6 (31.0-37.0) g/dL RDW 14.7 (11.5-15.5) % Plt Count 151 (150-450) k/uL Neutrophils % 72 % Lymphocytes % 18 % Monocytes % 5 % Eosinophils % 3 % Basophils % 0 % Neutrophils # 5.0 (1.3-7.7) k/uL Lymphocytes # 1.3 (1.0-4.8) k/uL Monocytes # 0.4 (0-1.0) k/uL Eosinophils # 0.2 (0-0.7) k/uL Basophils # 0.0 (0-0.2) k/uL PT 10.7 (9.0-12.0) sec INR 1.1 (<1.2) APTT 22.8 (22.0-30.0) sec Sodium 132 L (137-145) mmol/L Potassium 4.9 (3.5-5.1) mmol/L Chloride 98 (98-107) mmol/L Carbon Dioxide 20 L (22-30) mmol/L Anion Gap 14 mmol/L BUN 22 H (7-17) mg/dL Creatinine 0.81 (0.52-1.04) mg/dL Est GFR (CKD-EPI)AfAm 76 (>60 ml/min/1.73 sqM) Est GFR (CKD-EPI)NonAf 66 (>60 ml/min/1.73 sqM) Glucose 177 H (74-99) mg/dL Calcium 9.1 (8.4-10.2) mg/dL Total Bilirubin 0.4 (0.2-1.3) mg/dL AST 26 (14-36) U/L ALT 24 (9-52) U/L Alkaline Phosphatase 69 (38-126) U/L Total Protein 7.2 (6.3-8.2) g/dL Albumin 4.3 (3.5-5.0) g/dL - Radiology Data Radiology results: report reviewed (Computed tomography scan of the aorta does show 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 No significant aneurysm.) Disposition Clinical Impression: Aortic dissection, abdominal Disposition: ADMITTED IP TO THIS HOSP Is patient prescribed a controlled substance at d/c from ED?: No Referrals: Sergo Martinez DO [Primary Care Provider] - 1-2 days Decision Time: 20:42
[2017-10-16 17:26] LABS: Basophils % (A) 0 %; Eosinophils # (A) 0.2 k/uL (0-0.7); Eosinophils % (A) 3 %; HCT 35.9 % (34.0-46.0); HGB 11.7 gm/dL (11.4-16.0); Lymphocytes # (A) 1.3 k/uL (1.0-4.8); Lymphocytes % (A) 18 %; MCH 29.1 pg (25.0-35.0); MCHC 32.6 g/dL (31.0-37.0); MCV 89.5 fL (80.0-100.0); Monocytes # (A) 0.4 k/uL (0-1.0); Monocytes % (A) 5 %; Neutrophils % (A) 72 %; Platelet Count 151 k/uL (150-450); RBC 4.01 m/uL (3.80-5.40); RDW 14.7 % (11.5-15.5)
[2017-10-16 17:35] LABS: INR 1.1 (<1.2); Partial Thromboplastin Time 22.8 sec (22.0-30.0); Prothrombin Time 10.7 sec (9.0-12.0)
[2017-10-16 17:38] LABS: Albumin 4.3 g/dL (3.5-5.0); Calcium 9.1 mg/dL (8.4-10.2); Potassium 4.9 mmol/L (3.5-5.1); Total Bilirubin 0.4 mg/dL (0.2-1.3); Total Protein 7.2 g/dL (6.3-8.2)
--- NOTE | 2017-10-16 19:02 | CT ---
CT angiogram of the thoracic and abdominal aorta with runoffs. History abnormal lumbar CT scan. Comparison none. TECHNIQUE: Multiple axial sections were obtained from the level of the thoracic inlet to the bottom of the feet with intravenous contrast. The contrast was Isovue 125 mL. There are 3-D post processed images. FINDINGS: Lungs are clear of consolidation. There is no evidence of a pulmonary mass. There is a large hiatal h ernia. Heart is slightly enlarged. There is atherosclerotic vascular calcification. Ascending aorta m easures 3.7 cm. I see no filling defects in the pulmonary arteries. Abdominal aorta is atheromatous. There is patency of the celiac artery and superior mesenteric artery . Abdominal aorta measures up to 2.5 cm. There is a small segment of the distal abdominal aorta with dissection. The false lumen is 1 cm. This is just below the renal arteries. There is arterial flow in the common internal and external iliac arteries bilaterally. There is mild atherosclerotic plaque formation. There is iliac artery luminal narrowing up to 25%. There is bilater al arterial flow in the femoral arteries and profunda femoris arteries. There is bilateral arterial f low in the popliteal arteries. Exam is limited due to the atherosclerotic calcification in the wall o f the tibial arteries. There appears to be arterial flow in the anterior posterior tibial arteries an d the peroneal arteries. There is bilateral posterior tibial artery flow at the ankles and feet. Ther e is bilateral dorsalis pedis arterial flow. I see no sign of hemodynamically significant stenosis in the arteries of both legs. Liver spleen pancreas appear normal. Gallbladder appears normal. Bile ducts are not dilated. Kidneys show satisfactory contrast opacification. There is no hydronephrosis. There is 1 cm cortical cyst pos terior left kidney. There is no retroperitoneal adenopathy. There is no ascites. There is small umbil ical hernia that contains fat. There is ordinary spondylotic change in the thoracic and lumbar spine. There is no compression fracture. IMPRESSION: There is a short segment of 3 cm of the abdominal aorta just below the renal arteries with a limited dissection. No significant aneurysmal change in the abdominal aorta. Atherosclerotic vascular disease . No evidence for hemodynamically significant stenosis in both legs.
[2017-10-16] MEDS ORDERED: NALOXONE 0.4 MG/ML 1 ML VIAL IV PRN (20:44)
[2017-10-16] MEDS ORDERED: hydrALAZINE HCL 20 MG/ML 1 ML VIAL IVP PRN (20:44)
[2017-10-16] MEDS ORDERED: SODIUM CHLORIDE 0.9% 1,000 ML IV SCH (20:45)
[2017-10-16] MEDS: LISINOPRIL 10 MG TAB PO SCH (22:34)
[2017-10-16] MEDS: METOPROLOL TARTRATE 50 MG TAB PO SCH (22:34)
[2017-10-16 23:38] LABS: Appearance,Urine Cloudy (Clear); Bacteria,Urine Few /hpf; Bilirubin,Urine Negative (Negative); Blood,Urine Trace (Negative); Color,Urine Light Yellow; Glucose,Urine (UA) Negative (Negative); Ketones,Urine Negative (Negative); Leukocyte Esterase,Urine Large (Negative); Nitrite,Urine Negative (Negative); PH, Urine 6.5 (5.0-8.0); Protein,Urine Negative (Negative); Specific Gravity,Urine 1.016 (1.001-1.035); Urobilinogen,Urine <2.0 mg/dL (<2.0); WBC,Urine >182 /hpf (0-5)
[2017-10-17] MEDS: Acetaminophen-Codeine 300-30mg TAB PO PRN ×2 (01:00→10:13)
[2017-10-17 01:29] VITALS: BMI 26.1
[2017-10-17 06:01] LABS: Glucose,Whole Blood 111 mg/dL (75-99)
[2017-10-17] MEDS ORDERED: PANTOPRAZOLE 40 MG TABLET PO SCH (07:30)
[2017-10-17 07:37] VITALS: TEMP 97
--- NOTE | 2017-10-17 08:30 | CONS ---
CONSULTATION This is an 87-year-old pleasant female. The patient has been admitted through the emergency room. The patient had a CT scan of the abdomen that showed a small area of aortic dissection, short-segment, which is not extending to the iliac arteries and there is no evidence of any aneurysm. The patient has history of chronic back problem and she has been seeing an orthopedic surgeon for possible epidural and management. The patient has been admitted under Dr. Lofton's service for control of blood pressure. There is no evidence of the pain going to the extremity. Pain is mostly localized to the lumbar region, which is chronic in nature. MEDICAL HISTORY: History of atrial fibrillation, coronary artery disease, diabetes mellitus, hyperlipidemia, hypertension, myocardial infarction, and thyroid disorders. SURGICAL HISTORY: Patient had a cholecystectomy in the past, heart catheterization with stent placement and hysterectomy. PHYSICAL EXAMINATION: On examination, patient was seen in her room. Her vital signs stable. The blood pressure is 145/62. Neck is supple. Chest is clear to auscultation. Abdomen is soft. Femoral pulses are palpable. IMPRESSION: Short-segment aortic dissection. No vascular compromise to the extremity. PLAN: The patient's blood pressure is stable. We will discuss with Internal Medicine. From surgical point of view, patient can be discharged. We will follow in the office. I have given my number to the patient. I can discuss with her daughter. MMODL / IJN: [id number] /
[2017-10-17] MEDS ORDERED: amLODIPine 10 MG TAB PO SCH (09:00)
[2017-10-17] MEDS ORDERED: LINAGLIPTIN 5 MG TABLET PO SCH (09:00)
[2017-10-17] MEDS ORDERED: ATORVASTATIN 20 MG TAB PO SCH (09:00)
[2017-10-17] MEDS ORDERED: FUROSEMIDE 20 MG TAB PO SCH (09:00)
[2017-10-17 09:18] LABS: Glucose,Whole Blood 133 mg/dL (75-99)
[2017-10-17] MEDS: METOPROLOL TARTRATE 50 MG TAB PO SCH (09:50)
[2017-10-17] MEDS: LISINOPRIL 10 MG TAB PO SCH (09:51)
[2017-10-17 11:17] VITALS: BP 144/61; PULSE 60; RESP 16
[2017-10-17 12:00] LABS: Glucose,Whole Blood 123 mg/dL (75-99)
--- NOTE | 2017-10-17 12:21 | HP ---
HISTORY AND PHYSICAL CHIEF COMPLAINT: Abdominal pain and possible abdominal aortic dissection. HISTORY OF PRESENT ILLNESS: This is the first known admission for this 87-year-old white female. She presented to the emergency room with low back pain. She has chronic back pain due to osteoarthritis. Studies indicated that she may have a dissection of the abdominal aorta and for this reason, she was admitted. She has had no problems with the lower extremities, pulsatile pain in the back, etc. REVIEW OF SYSTEMS: She has had no headaches, neurologic problems, chest pain, shortness of breath, abdominal pain, hematochezia or melena, urinary complaints. She is apparently not diabetic. She has already been evaluated by Vascular Surgery who feels that her aortic situation is not acute and that she can be discharged. PHYSICAL EXAMINATION: Blood pressure is 146/90 with a pulse of 74. Respirations of 20 and she is afebrile. In general she appeared to be well developed and well preserved for her age. Skin color is normal. Head, ears, eyes, nose, mouth, and throat were normal. Neck veins are not distended. Thyroid is not enlarged. It is. Chest is clear. Cardiac exam demonstrates what sounds like sinus rhythm and no murmurs or extra sounds. Abdomen is soft, nontender. Extremities are normal. IMPRESSION: 1. She is admitted to the hospital with diagnosis of low back pain. 2. Possible dissection of abdominal aorta which may be chronic. PLAN: 1. Vascular Surgery consult. 2. Monitor back pain. She can probably go home later today if nothing else develops. MMODL / IJN: [id number] /
--- NOTE | 2017-10-17 13:27 | CDI ---
Last Revision, January 2017 Documentation Clarification Form Date: 10/17/17 From: Ariane Bassett RN, CCDS Admit Date: 10/16/2017 8:46:00 PM Patient Name: Millie Weaver Visit Number: [id number] Discharge Date: ATTENTION: The Clinical Documentation Specialists (CDI) and [facility] Coding Staff appreciate your assistance in clarifying documentation. Please respond to the clarification below the line at the bottom and electronically sign. The CDI & [facility] Coding staff will review the response and follow-up if needed. Please note: Queries are made part of the Legal Health Record. If you have any questions, please contact the author of this message via ITS. Bharath Harris MD Atrial fibrillation is documented in the past medical history History/Risk Factors: Atrial Fibrillation, Coronary Artery Disease Diabetes Mellitus, Hypertension, Hyperlipidemia Clinical Indicators: Present after computer tomography scan had concerns regarding possible aortic dissection, abdominal. EKG/telemetry: Atrial-paced rhythm with a rate 60. Right bundle branch block. Treatment: Monitor Labs PT/INR Xarelto ( currently on hold) In your professional opinion, can you please clarify the type of atrial fibrillation, if known? Chronic/Permanent Paroxysmal Persistent Other, please specify Unable to determine Please continue to document in your progress notes and discharge summary in order to capture severity of illness and risk of mortality. Include clinical findings that support your diagnosis. MTDD
[2017-10-17] MEDS ORDERED: AMOXICILLIN 250 MG CAP PO SCH (16:00)
--- NOTE | 2017-10-17 18:39 | DS ---
DISCHARGE SUMMARY CHIEF COMPLAINT: Back pain. HISTORY OF PRESENT ILLNESS AND PHYSICAL EXAM: Details of this lady's history and physical can be found in the initial workup. COURSE IN HOSPITAL: While she was in the hospital, she was evaluated for abdominal aortic dissection. She was seen by Vascular Surgery. It was felt that the 3 cm area in question in the aorta was static. Her back pain was due to her arthritis and radiculopathy affecting her left leg. She also had a urinary tract infection. It was felt she could go home on the and she will go home on her usual activity, diet and medication and she will be placed on Amoxil 250 t.i.d. She will follow up in several days. FINAL DIAGNOSES: 1. Low back pain due to osteoarthritis. 2. Small area of abdominal aortic wall dissection, static. 3. Urinary tract infection. OPERATIONS: None. CONSULTATIONS: Vascular Surgery. She is improved. MMODL / IJN: [id number] /
[2017-10-17 20:38] LABS: Hemoglobin A1C 6.6 % (4.0-6.0)
[2017-10-18] MEDS ORDERED: ASPIRIN 81 MG PO SCH (09:00)
--- NOTE | 2017-10-22 10:03 | CDI ---
Last Revision, January 2017 Documentation Clarification Form Date: 10/17/2017 1:28:00 PM From: Ariane Bassett RN, CCDS Admit Date: 10/16/2017 8:46:00 PM Patient Name: Millie Weaver Visit Number: [id number] Discharge Date: ATTENTION: The Clinical Documentation Specialists (CDI) and [facility] Coding Staff appreciate your assistance in clarifying documentation. Please respond to the clarification below the line at the bottom and electronically sign. The CDI & [facility] Coding staff will review the response and follow-up if needed. Please note: Queries are made part of the Legal Health Record. If you have any questions, please contact the author of this message via ITS. Dr. Lofton, Bharath Guy MD Atrial fibrillation is documented in the past medical history History/Risk Factors: Atrial Fibrillation, Coronary Artery Disease Diabetes Mellitus, Hypertension, Hyperlipidemia Clinical Indicators: Present after computer tomography scan had concerns regarding possible aortic dissection, abdominal. EKG/telemetry: Atrial-paced rhythm with a rate 60. Right bundle branch block. Treatment: Monitor Labs PT/INR Xarelto (currently on hold) In your professional opinion, can you please clarify the type of atrial fibrillation noted in patient history, if known? Chronic/Permanent Paroxysmal Persistent Other, please specify Unable to determine Please continue to document in your progress notes and discharge summary in order to capture severity of illness and risk of mortality. Include clinical findings that support your diagnosis. MTDD
== END 2017-10-17 15:10 | disposition home or self-care (01) | DRG 551 ==
LOC: EC 16:27 → 6SEL 20:46
PROVIDERS: ADMIT Family Medicine; ATTEND Family Medicine
DX: M47.27 Other spondylosis with radiculopathy, lumbosacral region (principal); I71.00 Dissection of unspecified site of aorta; N39.0 Urinary tract infection, site not specified; I48.91 Unspecified atrial fibrillation; E11.9 Type 2 diabetes mellitus without complications; G89.29 Other chronic pain; I25.10 Atherosclerotic heart disease of native coronary artery without angina pectoris; I10 Essential (primary) hypertension; E07.9 Disorder of thyroid, unspecified; E78.5 Hyperlipidemia, unspecified; I25.2 Old myocardial infarction; Z79.01 Long term (current) use of anticoagulants; Z79.84 Long term (current) use of oral hypoglycemic drugs; Z79.82 Long term (current) use of aspirin; Z79.899 Other long term (current) drug therapy; Z86.19 Personal history of other infectious and parasitic diseases; Z90.49 Acquired absence of other specified parts of digestive tract; Z90.710 Acquired absence of both cervix and uterus; Z95.5 Presence of coronary angioplasty implant and graft; Z98.42 Cataract extraction status, left eye; Z98.41 Cataract extraction status, right eye; Z80.0 Family history of malignant neoplasm of digestive organs
CPT/HCPCS: 36415; 71275; 72131; 75635; 80053; 81001; 83036; 85025; 85610; 85730; 93005; 96361; 96374; 99284